=== PATIENT | male | born 1950 | race Caucasian/White ===

== ENCOUNTER 2018-04-07 08:45 | Inpatient (IN) | payer MEDICARE, OTHER ==
[2018-04-07] VITALS (11 sets, daily range): BP systolic 95–116; BP diastolic 50–71
[~2018-04-07] VITALS: Ht 180.3 cm; Wt 147.6 kg
[~2018-04-07 08:45] MED LIST: ASPIRIN EC81 MG PO; FUROSEMIDE40 MG PO; INVANZ1 GM IJ; KLOR-CON 1010 ME1 PO; LISINOPRIL20 MG PO; METOLAZONE2.5 MG PO; SILVADENE1 % TOP; SIMVASTATIN20 MG PO
[2018-04-07 09:25] LABS: CREATININE 1.6 mg/dL (0.7-1.3); POTASSIUM 5.1 mmol/l (3.5-5.1)
[2018-04-07 09:26] LABS: HEMATOCRIT 47.5 % (39.0-50.0); HEMOGLOBIN 14.5 g/dl (14.0-18.0); IMMATURE GRANULOCYTES 0.5 % (0.0-5.0); MEAN CELL VOLUME 89.3 fL CALC (80.0-100.0); MEAN CORPUSCULAR HGB 27.3 pG CALC (26.0-32.0); MEAN CORPUSCULAR HGB CONC 30.5 g/L CALC (32.0-36.0); NEUT# 10.97 thou/uL (1.82-7.42); RED BLOOD COUNT 5.32 mill/uL (4.70-6.10); RED CELL DISTRI WIDTH 15.9 % (11.5-15.5)
[2018-04-07] MEDS ORDERED: HYDROCHLOROT25 MG PO (11:42)
[2018-04-07] MEDS ORDERED: CLONIDINE0.1 MG PO (11:42)
[2018-04-07] MEDS ORDERED: MINOCYCLINE100 MG PO (11:43)
[2018-04-07] MEDS ORDERED: METO50TA52 PO (11:44)
[2018-04-07 19:22] LABS: URINE BLOOD DIPSTICK TRACE-INTACT (NEGATIVE); URINE GLUCOSE - DIPSTICK NEGATIVE (NEGATIVE); URINE KETONE NEGATIVE (NEGATIVE); URINE LEUK ESTERASE NEGATIVE (NEGATIVE); URINE NITRITE - DIPSTICK NEGATIVE (Negative); URINE PH 5.5 (4.5-8.0); URINE PROTEIN - DIPSTICK 100 mg/dL (NEG-TRACE); URINE SPECIFIC GRAVITY >=1.030
[2018-04-07 19:31] LABS: URINE BILIRUBIN - DIPSTICK NEGATIVE (NEGATIVE); URINE CLARITY HAZY; URINE COLOR DK. YELLOW
[2018-04-07 19:32] LABS: URINE FINE GRAN CAST RARE lpf; URINE RBC 0-2 RBC/hpf (0-5); URINE WBC 0-2 WBC/hpf (0-5)
[2018-04-08] VITALS (19 sets, daily range): BP systolic 92–155; BP diastolic 52–91
[2018-04-08 05:41] LABS: HEMATOCRIT 44.4 % (39.0-50.0); HEMOGLOBIN 13.4 g/dl (14.0-18.0); IMMATURE GRANULOCYTES 0.4 % (0.0-5.0); MEAN CELL VOLUME 90.2 fL CALC (80.0-100.0); MEAN CORPUSCULAR HGB 27.2 pG CALC (26.0-32.0); MEAN CORPUSCULAR HGB CONC 30.2 g/L CALC (32.0-36.0); NEUT# 9.03 thou/uL (1.82-7.42); RED BLOOD COUNT 4.92 mill/uL (4.70-6.10); RED CELL DISTRI WIDTH 15.7 % (11.5-15.5)
[2018-04-08 05:58] LABS: ANION GAP 15 (6-22 (CALC)); BUN 30 mg/dL (8-23); BUN/CREATININE RATIO 27 (12-20 (CALC)); CARBON DIOXIDE 29 mmol/l (22-30); CHLORIDE 104 mmol/l (95-108); CREATININE 1.1 mg/dL (0.7-1.3); GFR > 60 ML/MIN (>=60 (CALC)); GFR FOR AFR.AMER. > 60 ML/MIN (>=60 (CALC)); SODIUM 143 mmol/l (137-146)
[2018-04-08 06:04] LABS: POTASSIUM 5.4 mmol/l (3.5-5.1)
[2018-04-09] VITALS (15 sets, daily range): BP systolic 105–142; BP diastolic 59–86
[2018-04-09 05:23] LABS: HEMATOCRIT 43.5 % (39.0-50.0); HEMOGLOBIN 13.2 g/dl (14.0-18.0); IMMATURE GRANULOCYTES 0.8 % (0.0-5.0); MEAN CELL VOLUME 90.2 fL CALC (80.0-100.0); MEAN CORPUSCULAR HGB 27.4 pG CALC (26.0-32.0); MEAN CORPUSCULAR HGB CONC 30.3 g/L CALC (32.0-36.0); NEUT# 11.19 thou/uL (1.82-7.42); RED BLOOD COUNT 4.82 mill/uL (4.70-6.10); RED CELL DISTRI WIDTH 15.3 % (11.5-15.5)
[2018-04-09 05:47] LABS: BUN 23 mg/dL (8-23); BUN/CREATININE RATIO 23 (12-20 (CALC)); CARBON DIOXIDE 31 mmol/l (22-30); CHLORIDE 106 mmol/l (95-108); GFR > 60 ML/MIN (>=60 (CALC)); GFR FOR AFR.AMER. > 60 ML/MIN (>=60 (CALC)); SODIUM 143 mmol/l (137-146)
[2018-04-09 05:50] LABS: ANION GAP 12 (6-22 (CALC)); POTASSIUM 5.5 mmol/l (3.5-5.1)
[2018-04-10] VITALS (13 sets, daily range): BP systolic 113–163; BP diastolic 75–102
[2018-04-10 05:20] LABS: HEMATOCRIT 44.2 % (39.0-50.0); HEMOGLOBIN 13.3 g/dl (14.0-18.0); MEAN CELL VOLUME 90.4 fL CALC (80.0-100.0); MEAN CORPUSCULAR HGB 27.2 pG CALC (26.0-32.0); MEAN CORPUSCULAR HGB CONC 30.1 g/L CALC (32.0-36.0); RED BLOOD COUNT 4.89 mill/uL (4.70-6.10); RED CELL DISTRI WIDTH 15.2 % (11.5-15.5)
[2018-04-10 05:45] LABS: ANION GAP 11 (6-22 (CALC)); BUN 24 mg/dL (8-23); BUN/CREATININE RATIO 23 (12-20 (CALC)); CARBON DIOXIDE 36 mmol/l (22-30); CHLORIDE 103 mmol/l (95-108); GFR > 60 ML/MIN (>=60 (CALC)); GFR FOR AFR.AMER. > 60 ML/MIN (>=60 (CALC)); POTASSIUM 4.8 mmol/l (3.5-5.1); SODIUM 145 mmol/l (137-146)
[2018-04-10] MEDS ORDERED: PREDNISONE10 MG PO (11:14)
[2018-04-10] MEDS ORDERED: DOXYCYCL HYC100 MG PO (11:14)
[2018-04-10] MEDS ORDERED: LEVAQUIN750 MG PO (11:14)
[2018-04-10] MEDS ORDERED: FLORASTOR250 M1 PO (11:14)
[2018-04-10] MEDS ORDERED: OXY1 (11:15)
[2018-04-11] VITALS (7 sets, daily range): BP systolic 140–160; BP diastolic 71–95
== END 2018-04-11 11:00 | disposition home or self-care (01) | DRG 871 ==
LOC: ED 08:45 → ED-I 11:32 → ED 12:14 → ICU 12:15
PROVIDERS: Family Medicine; Nurse Practitioner Family; ADMIT Internal Medicine; ATTEND Internal Medicine
PROC: 5A09457 Assistance with Respiratory Ventilation, 24-96 Consecutive Hours, Continuous Positive Airway Pressure (ICD-10-PCS; principal; 2018-04-07)
DX: A41.9 Sepsis, unspecified organism (principal); J96.02 Acute respiratory failure with hypercapnia; J96.01 Acute respiratory failure with hypoxia; R65.21 Severe sepsis with septic shock; L03.115 Cellulitis of right lower limb; Z68.42 Body mass index [BMI] 45.0-49.9, adult; N17.9 Acute kidney failure, unspecified; E66.2 Morbid (severe) obesity with alveolar hypoventilation; I11.0 Hypertensive heart disease with heart failure; I50.9 Heart failure, unspecified; I89.0 Lymphedema, not elsewhere classified; I25.10 Atherosclerotic heart disease of native coronary artery without angina pectoris; I25.2 Old myocardial infarction; E78.5 Hyperlipidemia, unspecified; E86.0 Dehydration; I27.20 Pulmonary hypertension, unspecified; Z87.891 Personal history of nicotine dependence
CPT/HCPCS: J3370; Q9967

== ENCOUNTER 2018-05-12 13:45 | Emergency (ER) | payer MEDICARE, OTHER ==
[~2018-05-12] VITALS: Ht 180.3 cm; Wt 90.9 kg
[~2018-05-12 13:45] MED LIST changes: +CLONIDINE0.1 MG PO; +DOXYCYCL HYC100 MG PO; +FLORASTOR250 M1 PO; +HYDROCHLOROT25 MG PO; +LEVAQUIN750 MG PO; +METO50TA52 PO; +MINOCYCLINE100 MG PO; +OXY1; +PREDNISONE10 MG PO
[2018-05-12 14:24] LABS: HEMATOCRIT 41.3 % (39.0-50.0); HEMOGLOBIN 12.3 g/dl (14.0-18.0); MEAN CELL VOLUME 91.6 fL CALC (80.0-100.0); MEAN CORPUSCULAR HGB 27.3 pG CALC (26.0-32.0); MEAN CORPUSCULAR HGB CONC 29.8 g/L CALC (32.0-36.0); NEUT# 8.21 thou/uL (1.82-7.42); RED BLOOD COUNT 4.51 mill/uL (4.70-6.10); RED CELL DISTRI WIDTH 17.2 % (11.5-15.5)
[2018-05-12 14:28] LABS: BUN 23 mg/dL (8-23); BUN/CREATININE RATIO 22 (12-20 (CALC)); CHLORIDE 95 mmol/l (95-108); GFR > 60 ML/MIN (>=60 (CALC)); GFR FOR AFR.AMER. > 60 ML/MIN (>=60 (CALC)); POTASSIUM 4.4 mmol/l (3.5-5.1); SODIUM 143 mmol/l (137-146)
[2018-05-12 14:36] LABS: ANION GAP 14 (6-22 (CALC)); CARBON DIOXIDE 38 mmol/l (22-30)
[2018-05-12] MEDS ORDERED: CEPHALEXIN500 M1 PO (15:16)
[2018-05-12] MEDS ORDERED: BACTRIM DS1 TAB PO (15:16)
[2018-05-12 15:24] LABS: URINE BILIRUBIN - DIPSTICK NEGATIVE (NEGATIVE); URINE BLOOD DIPSTICK NEGATIVE (NEGATIVE); URINE COLOR YELLOW; URINE GLUCOSE - DIPSTICK NEGATIVE (NEGATIVE); URINE KETONE NEGATIVE (NEGATIVE); URINE LEUK ESTERASE NEGATIVE (NEGATIVE); URINE NITRITE - DIPSTICK NEGATIVE (Negative); URINE PROTEIN - DIPSTICK 30 mg/dL (NEG-TRACE); URINE SPECIFIC GRAVITY 1.025
[2018-05-12 15:29] LABS: URINE CLARITY CLEAR; URINE RBC 0-2 RBC/hpf (0-5); URINE WBC 0-2 WBC/hpf (0-5)
[2018-05-12 15:30] VITALS: BP 127/54
== END 2018-05-12 15:30 | disposition home or self-care (01) ==
LOC: ED 13:45
PROVIDERS: Family Medicine
DX: L03.315 Cellulitis of perineum (principal); I10 Essential (primary) hypertension; I89.0 Lymphedema, not elsewhere classified; Z99.81 Dependence on supplemental oxygen

== ENCOUNTER → 2018-10-28 | Outpatient (REF) | payer MEDICARE, OTHER ==
[~2018-10-28] MED LIST changes: +BACTRIM DS1 TAB PO; +CEPHALEXIN500 M1 PO
[2018-10-28 08:34] LABS: ANION GAP 13 (6-22 (CALC)); BUN 22 mg/dL (8-23); BUN/CREATININE RATIO 22 (12-20 (CALC)); CARBON DIOXIDE 34 mmol/l (22-30); CHLORIDE 98 mmol/l (95-108); GFR > 60 ML/MIN (>=60 (CALC)); GFR FOR AFR.AMER. > 60 ML/MIN (>=60 (CALC)); POTASSIUM 4.6 mmol/l (3.5-5.1); SODIUM 141 mmol/l (137-146)
== END | disposition home or self-care (01) ==
LOC: LAB 07:37
PROVIDERS: ATTEND Internal Medicine
DX: I10 Essential (primary) hypertension (principal)

== ENCOUNTER 2019-06-18 14:06 | Inpatient (IN) | payer MEDICARE, OTHER ==
[~2019-06-18] VITALS: Ht 180.3 cm; Wt 129.7 kg
[2019-06-18] VITALS (12 sets, daily range): BP systolic 74–102; BP diastolic 44–58
--- NOTE | 2019-06-18 14:08 | NUR ---
PT WHEELED TO ROOM # 9 FOR BEDSIDE TRIAGE
--- NOTE | 2019-06-18 14:10 | NUR ---
PT STATES HAS LYMPODEMA AND LEGS ARE ALWAYS BIG, BUT HE HAD INCREASED SOB TODAY, WAS OVER [facility] BECAUSE HE HAS PINA LEGS WEEPING CHRONIC THAT THEY ARE SEEING HIM FOR. THEY SENT HIM TO ER FOR EVALUATION. PT IS ON 4 LITRES OF OXYGEN AT HOME AT ALL TIMES. DOES NOT TAKE NEB TX OF INHALERS. PT STATES HAS BEEN WORKING A LOT OF NIGHT SHIFTS WITH LEGS HANGING DOWN IN CHAIR THE PAST COUPLE OF WEEKS, AND HIS LEGS TEND TO SWELL MORE AND INCREASED SOB WHEN THAT HAPPENS. STATES HIS BLOOD PRESSURE IS USUALLY LOW,
[2019-06-18] MEDS ORDERED: FUROSEMIDE20 MG PO (14:25)
[2019-06-18] MEDS ORDERED: CEFEPIME1 G2 IV (14:25)
[2019-06-18] MEDS ORDERED: SILDENAFIL20 MG PO (14:26)
--- NOTE | 2019-06-18 14:40 | NUR ---
UNSUCCESSFUL ATTEMPTS BY 3 NURSES, HAVE IV ACCESS AT THIS TIME IN RIGHT UPPER CHEST WALL, FLUSHES WELL.
--- NOTE | 2019-06-18 14:41 | NUR ---
RESPIRATORY HERE FOR ABG, TRIED UNSUCCESSFUL, WILL ATTEMPT AGAIN, PORTABLE CHEST XRAY DONE. AT BEDSIDE. ARGUING AMONG AND PT ON EVERY QUESTION THAT IS ASKED. PT STATES HE DOES NOT APPLY HIS COMPRESSION MACHINE FOR HIS LEGS LIKE HE IS SUPPOSE TO.
--- NOTE | 2019-06-18 14:44 | NUR ---
IV ACCESS ON RIGHT UPPER CHEST FLUSHES WELL. TAPED AND SECURED.
--- NOTE | 2019-06-18 14:55 | NUR ---
NOTIFIED OF SEPSIS SCREENING. WILL BE DOING ANTIBIOTICS, BUT BECAUSE OF THE EDEMA DR. HERNANDEZ DOES NOT WANT TO GIVE FLUIDS. AWARE.
[2019-06-18 15:06] LABS: IMMATURE GRANULOCYTES 3.4 % (0.0-5.0); MEAN CELL VOLUME 84.1 fL CALC (80.0-100.0); MEAN CORPUSCULAR HGB 26.4 pG CALC (26.0-32.0); MEAN CORPUSCULAR HGB CONC 31.4 g/L CALC (32.0-36.0); NEUT# 24.02 thou/uL (1.82-7.42); RED BLOOD COUNT 4.16 mill/uL (4.70-6.10); RED CELL DISTRI WIDTH 16.1 % (11.5-15.5)
[2019-06-18 15:20] LABS: INTERNATIONAL NORMALIZED RATIO 1.1 RATIO (0.7-1.3); PROTHROMBIN TIME 11.4 SECONDS (9.0-12.5)
[2019-06-18 15:24] LABS: ALBUMIN 3.3 g/dL (3.2-5.0); BILIRUBIN, TOTAL 1.2 mg/dL (0.0-1.4); TOTAL PROTEIN 7.9 g/dL (6.3-8.2)
[2019-06-18 15:30] LABS: CREATININE 3.7 mg/dL (0.7-1.3); POTASSIUM 5.4 mmol/l (3.5-5.1)
--- NOTE | 2019-06-18 15:35 | NUR ---
PTS SATS REMAIN IN THE LOW 90'S WITH O2 &4
--- NOTE | 2019-06-18 15:36 | NUR ---
BLOODD PRESSURE REMAINS LOW IN THE 70'S, PT AND HIS STATES THIS IS A CHRONIC PROBLEM, FOR LAST 5 YEARS. PT STATES FEELS BETTER AT THIS TIME.
--- NOTE | 2019-06-18 16:34 | NUR ---
VANCOMYACIN INFUSING AT THIS TIME THRU IV IN LEFT HAND, NO REDNESS NOTED. PINA LEGS ARE WRAPPED IN EDITH PER WOUND CARE BECAUSE OF LEGS WEEPING. REDNESS NOTED TO UPPER THIGHS, PT STATES THIS IS NORMAL AND THAT HE HAS NOT BEEN USING HIS MACHINE FOR HIS LYMPHADEMA HE SHOULD BE.
--- NOTE | 2019-06-18 17:12 | NUR ---
WAITING FOR DR. NICHOLAS TO CALL BACK ABOUT BLOOD PRESSURE BEFORE TAKING PT TO FLOOR, CALL IN FOR HIM TO CALL ER. PT STATES HE HAS CHRONIC BLOOD PRESSURE AND HIS SATS USALLY RUN IN BETWEEN 79-83 AT HOME WHEN ON 4 L PER NC
--- NOTE | 2019-06-18 17:20 | NUR ---
[facility] CALLED TO RECOMMEND CEFEPINE BE GIVEN 500/2 GRAMS EVERY 24 HOURS INSTEAD OF ORDER OF CEFAPINE 1 GRAM BID. WILL SPEAK WIWTH DR. DIMAS WHEN HE CALLS BACK
--- NOTE | 2019-06-18 17:33 | NUR ---
DR. NICHOLAS HERE SPEAKING WITH PT. WILL CHANGE CEFIPIME ORDER PER [facility] SUGGESTION AND HAVE A PRN PRESSOR PLACED ON ORDERS.
--- NOTE | 2019-06-18 17:50 | NUR ---
PT REPORT GIVEN TO ICU AND PT TAKEN PER STRETCHER WITH MONITER.
--- NOTE | 2019-06-18 18:02 | NUR ---
PT ARRIVED FROM ED TO ICU BED 7 VIA STRETCHER. PT SCOOTED HIMSELF FROM STRETCHER TO BED. PT DENIES CHEST PAIN OR DISTRESS, SR ON TELEMETRY, HR 99. RESP-26 WITH PURSED LIP BREATHING. LS WHEEZING THROUGHOUT.SAO2@85% ON 4LPM VIA N/C.NON-PRODUCTIVE COUGH. ABDOMEN SOFT, DISTENDED, NON-TENDER WITH BSX4 ACTIVE, LBM 10-24-19. PT WITH +4 PITTING EDEMA TO BLE, WRAPS INTACT FOR WEEPING. PT REPORTS DRESSING AND WRAP CHANGED TODAY AT [facility] JUST PRIOR TO ADMISSION, CDI. PT CONTINUES WITH 20G RU CHEST/SL & 20G RAC/SL, BOTH FLUSH WITHOUT DIFFICULTY. 20G TO R HAND INFUSING NS@125ML/HR, NO S/S OF INFILTRATION. PT STATES 5/10 PAIN TO BLE THAT IS CHRONIC, STATES "IF IT GETS REALLY BAD I TAKE IBPROFEN AT HOME." PT ALSO STATED WAS HAVE H/H IN M,W,F FOR WOUNDCARE UNTIL LAST WEEK. PT ORIENTED TO UNIT, ROOM AND CALL LIGHT. CALL LIGHT IN REACH. WILL MONITOR.
--- NOTE | 2019-06-18 18:34 | NUR ---
DR. MOORE NOTIFIED ABOUT PT B/P PARAMETERS TO INITIATE LEVOPHED AND PT CURRENT O2SAT. NEW ORDERS RECIEVED.
--- NOTE | 2019-06-18 19:00 | NUR ---
REPORT RECEIVED FROM ELISEO AVERY. PT UP TO BSC FOR BOWEL MOVEMENT AT THIS TIME.
--- NOTE | 2019-06-18 19:40 | NUR ---
PT ASSISTED BACK INTO BED SEMI FOWLERS; UNABLE TO HAVE BM AT THIS TIME. PT ALERT AND ORIENTED. C/O CHRONIC LEG PAIN; DECLINED MEDICATION. RESPIRATIONS SLIGHTLY LABORED FROM EXERTION ON OXYGEN VIA NC. ASSESSMENT COMPLETED AT THIS TIME. BP 92/52 MAP OF 66. PLAN OF CARE REVIEWED. PT ENCOURAGED TO VERBALIZE CONCERNS. STATES UNDERSTANDING. SAFETY MEASURES IN PLACE. CALL LIGHT WITHIN REACH.
--- NOTE | 2019-06-18 20:40 | NUR ---
2L NORMAL SALINE BOLUS HELD FOR IMPROVED BLOOD PRESSURE PER DR. KEMP. BP CURRENTLY 102/53; WILL CONTINUE TO MONITOR. PT VOIDED 150ML OF TEA COLORED URINE; SPECIMENT SENT TO LAB.
[2019-06-18 20:41] LABS: URINE BLOOD DIPSTICK MODERATE (NEGATIVE); URINE COLOR BROWN; URINE GLUCOSE - DIPSTICK NEGATIVE (NEGATIVE); URINE KETONE TRACE mg/dL (NEGATIVE); URINE LEUK ESTERASE NEGATIVE (NEGATIVE); URINE PROTEIN - DIPSTICK 30 mg/dL (NEG-TRACE); URINE SPECIFIC GRAVITY >=1.030; URINE UROBILINOGEN - DIPSTICK 0.2 E.U./dL (0.2)
[2019-06-18 20:45] LABS: URINE BILIRUBIN - DIPSTICK NEGATIVE (NEGATIVE); URINE NITRITE - DIPSTICK POSITIVE (Negative)
[2019-06-18 20:48] LABS: URINE BACTERIA FEW hpf
[2019-06-18 20:49] LABS: URINE AMORPH SEDIMENT MANY hpf (NONE-FER)
[2019-06-19] VITALS (34 sets, daily range): BP systolic 53–135; BP diastolic 27–77
--- NOTE | 2019-06-19 00:16 | NUR ---
PT ASLEEP WITH NO SIGNS OF DISTRESS. RESPIRATIONS EVEN AND UNLABORED ON OXYGEN; RESTING WITH HOB ELEVATED 45 DEGREES; OXYGEN SATURATIONS FROM 80-85% ON 4L NC. SR/ST ON TELEMETRY. BP 82/46 WITH MAP OF 60. IV FLUIDS INFUSING WITHOUT DIFFICULTY. BLE ELEVATED. SAFETY MEASURES IN PLACE. CALL LIGHT WITHIN REACH.
--- NOTE | 2019-06-19 02:01 | NUR ---
PT SITTING UP DRINKING COFFEE PER REQUEST. VOIDED 175ML OF BROWN/TEA COLORED URINE. REMAINS HYPOTENSIVE, BUT STABLE AND ASYMPTOMATIC. NO OTHER REQUESTS OR CONCERNS AT THIS TIME.
--- NOTE | 2019-06-19 04:43 | NUR ---
LEVOPHED DRIP INITIATED AT 8MCG/MIN FOR BP OF 86/27 AND SUSTAINED MAP OF 47.
--- NOTE | 2019-06-19 04:49 | NUR ---
LAB AT BEDSIDE.
--- NOTE | 2019-06-19 05:28 | NUR ---
PT UP TO BSC FOR AMY CARE AND LINEN CHANGE. PT WASHED SELF UP AND POSITIONED BACK INTO BED. DECLINES ORAL CARE AT THIS TIME. LEVOPHED NOW INFUSING AT 11 MCG/MIN. BP 105/56 MAP 74.
[2019-06-19 05:41] LABS: HEMATOCRIT 36.3 % (39.0-50.0); HEMOGLOBIN 11.1 g/dl (14.0-18.0); MEAN CELL VOLUME 85.4 fL CALC (80.0-100.0); MEAN CORPUSCULAR HGB 26.1 pG CALC (26.0-32.0); MEAN CORPUSCULAR HGB CONC 30.6 g/L CALC (32.0-36.0); RED BLOOD COUNT 4.25 mill/uL (4.70-6.10); RED CELL DISTRI WIDTH 16.2 % (11.5-15.5)
[2019-06-19 05:47] LABS: ALBUMIN 2.9 g/dL (3.2-5.0); BILIRUBIN, TOTAL 0.9 mg/dL (0.0-1.4); TOTAL PROTEIN 7.2 g/dL (6.3-8.2)
[2019-06-19 05:55] LABS: POTASSIUM 5.6 mmol/l (3.5-5.1)
--- NOTE | 2019-06-19 06:45 | NUR ---
RECIEVED REPORT FROM ELISEO SWENSON. ASSUMED PT CARE.
--- NOTE | 2019-06-19 07:57 | NUR ---
Vancomycin consult Age: 69 yo Serum creatinine: 3 mg/dL Height: 71.0 Inches Weight (kg): 123.9 IBW (kg): 75.30 Dosing wt(kg): 123.9 BMI > 25 using IBW wt for crcl Estimated Creatinine clearance (ml/min): 24.8 Vd (liters): 86.7 (factor used: 0.7 L/kg) Eddie (hr-1): 0.025 Half life (hrs): 27.73 Vancomycin 1250 mg q 24 hrs, starting at 1300 today, with an expected Cpeak of 31 mcg/ml and an expected Ctrough of 18 mcg/ml. Vancomycin 1gm already given 06/18/19 at 1611. Trough on 06/22/19 at 1230.
--- NOTE | 2019-06-19 08:00 | NUR ---
PT RESTING IN BED, A&OX4, ABLE TO MAKE NEEDS KNOWN. SR ON TELEMETRY, HR 96 PT DENIES CP OR DISTRESS. PURSE LIP BREATHING, SOB WITH EXERTION. RT NOTIFIED. SA02@88%ON 4LPM VIA N/C. ABDOMEN SOFT, DISTENDED, NON TENDER, BSX4 ACTIVE. BLE +4 LYMPHODEMA WITH BLE WRAPS CDI, WITH ODOR NOTED. CALL LIGHT IN REACH. WILL MONITOR.
--- NOTE | 2019-06-19 08:15 | NUR ---
RT AT BEDSIDE FOR ASSESSMENT.
--- NOTE | 2019-06-19 08:20 | NUR ---
PT ASSISTED TO BSC, THEN BACK TO BED .
--- NOTE | 2019-06-19 08:45 | NUR ---
DR. MOORE & DIEGO TOSCANO AT BEDSIDE FOR ASSESSMENT AND TO DISCUSS PLAN OF CARE. NEW ORDERS RECIEVED.
--- NOTE | 2019-06-19 10:00 | NUR ---
PT ARRIVED AT BEDSIDE.
--- NOTE | 2019-06-19 11:00 | NUR ---
IV site LH discontinued, cath intact. No edema , no redness, voices no discomfort.
--- NOTE | 2019-06-19 11:30 | NUR ---
PT REPOSITIONED SELF, LUNCH TRAY SET UP. GUEST TRAY ORDERED FOR .
--- NOTE | 2019-06-19 12:00 | NUR ---
ASKED PT ABOUT INSERTION OF BARAHONA FOR STRICT I&O'S , PT REFUSED. "STATED i WOULD RATHER YOU HAVE TO CUT ME OPEN, THAN GET A BARAHONA."
--- NOTE | 2019-06-19 13:00 | NUR ---
ASKED PT AGAIN TO CONSIDER A BARAHONA, PT REFUSED.
[2019-06-19 13:07] LABS: CREATININE 2.3 mg/dL (0.7-1.3); MAGNESIUM 2.8 mg/dL (1.6-2.3); POTASSIUM 5.1 mmol/l (3.5-5.1)
--- NOTE | 2019-06-19 14:30 | NUR ---
DR. MOORE AT BEDSIDE TO DISCUSS PLACEMENT OF BARAHONA, PT REFUSED.
--- NOTE | 2019-06-19 16:00 | NUR ---
PT RESTING IN BED, OFFERS NO COMPLAINTS AT THIS TIME. RESPIRATIONS EVEN/UNLABORED. SA02@92% ON 5LPM . CALL LIGHT IN REACH. WILL MONITOR.
--- NOTE | 2019-06-19 17:00 | NUR ---
ARRIVED AT BEDSIDE.
--- NOTE | 2019-06-19 17:39 | NUR ---
FAMILY ARRIVED AT BEDSIDE.
--- NOTE | 2019-06-19 19:20 | NUR ---
sitting in high fowlers position. o2 cont. awakens easily. [place]. denies distress. awake overnight monitor shows sinus rhythm pacs pvcs. #20 rac ns infusing @ 125cchr, levo infusing @ 10mcg/min. po fluids taken fair. voids per urinal. ble dressing are wet. foul odor noted. fall precautions cont.
--- NOTE | 2019-06-19 22:00 | NUR ---
sleeping in high fowlers position. no distress. monitoring coordinator shows sinus rhythm pacs pvcs hr 98.
[2019-06-20] VITALS (33 sets, daily range): BP systolic 75–139; BP diastolic 26–82
--- NOTE | 2019-06-20 00:20 | NUR ---
up to bsc per request. asked pt if he used home cpap. pt denied.
--- NOTE | 2019-06-20 02:00 | NUR ---
eyes closed. no acute distress. o2 cont.
--- NOTE | 2019-06-20 04:00 | NUR ---
voided per urinal. no c/o voiced. surveillance monitor shows sinus rhythm pacs pvcs hr 96.
--- NOTE | 2019-06-20 05:20 | NUR ---
lab here. blood drawn.
[2019-06-20 05:54] LABS: HEMATOCRIT 39.8 % (39.0-50.0); HEMOGLOBIN 11.9 g/dl (14.0-18.0); MEAN CELL VOLUME 87.9 fL CALC (80.0-100.0); MEAN CORPUSCULAR HGB 26.3 pG CALC (26.0-32.0); MEAN CORPUSCULAR HGB CONC 29.9 g/L CALC (32.0-36.0); RED BLOOD COUNT 4.53 mill/uL (4.70-6.10); RED CELL DISTRI WIDTH 16.4 % (11.5-15.5)
--- NOTE | 2019-06-20 06:00 | NUR ---
eyes closed. remains in high fowlers position. o2 cont.
[2019-06-20 06:12] LABS: CREATININE 1.5 mg/dL (0.7-1.3); POTASSIUM 5.1 mmol/l (3.5-5.1)
--- NOTE | 2019-06-20 07:10 | NUR ---
REPORT RECEIVED FROM JERI DUMONT. PT SITTING UP IN BED; ALERT AND ORIENTED. DENIES PAIN. RESPIRATIONS EVEN AND UNLABORED ON OXYGEN. LEVOPHED INFUSING AT 3MCG/MIN. SAFETY MEASURES IN PLACE. CALL LIGHT WITHIN REACH.
--- NOTE | 2019-06-20 08:10 | NUR ---
Vancomycin consult Age: 69 yo Serum creatinine: 1.5 mg/dL (decreased from 3 to 1.5) Height: 71.0 Inches Weight (kg): 124 IBW (kg): 75.30 Dosing wt(kg): 124 Estimated Creatinine clearance (ml/min): 49.5 Crcl improved from 25 to 49 Vd (liters): 86.8 (factor used: 0.7 L/kg) Eddie (hr-1): 0.045 Half life (hrs): 15.40 Vancomycin 1000 mg q 12 hrs at 1000 & 2200 with an expected Cpeak of 26 mcg/ml and an expected Ctrough of 16 mcg/ml. Next trough on 06/21/19 at 2130
--- NOTE | 2019-06-20 08:10 | NUR ---
PT INCONTINENT OF URINE; UP TO BS FOR FULL ASSISTED BATH BY STUDENT NURSE AND LINEN CHANGE. ASSESSMENT COMPLETED AT THIS TIME. PT NOW SITTING UP IN RECLINER EATING BREAKFAST. C/O MILD PAIN TO BLE; MIRACLE WRAPS CDI. LUNGS WITH EXPIRATORY WHEEZING. PLAN OF CARE REVIEWED. PT ENCOUARGED TO VERBALIZE CONCERNS. STATES UNDERSTANDING. SAFETY MEASURES IN PLACE. CALL LIGHT WITHIN REACH.
--- NOTE | 2019-06-20 09:19 | NUR ---
DIEGO CADET AT BEDSIDE. LEVOPHED DRIP DISCONTINUED.
--- NOTE | 2019-06-20 09:56 | NUR ---
PT BACK IN BED RESTING SEMI FOWLERS. OXYGEN SATURATION REMAINS BETWEEN 79-85% ON OXYGEN 4L VIA NC. CURRENTLY DENIES PAIN. NO OTHER REQEUSTS OR CONCERNS AT THIS TIME.
--- NOTE | 2019-06-20 10:29 | NUR ---
AT BEDSIDE. PT SR/ST ON TELEMETRY.
--- NOTE | 2019-06-20 10:42 | NUR ---
PT C/O SOB WITH NC; OXYGEN SATURATION 85%. CHANGED TO 50% ON THE VENTI MASK; OXYGEN SATURATION UP TO 89%.
--- NOTE | 2019-06-20 12:55 | NUR ---
CEFEPIME INFUSING AT THIS TIME. VSS. PT VOIDING IN URINAL CLEAR YELLOW.
--- NOTE | 2019-06-20 13:17 | NUR ---
DR MOORE AT BEDSIDE.
--- NOTE | 2019-06-20 13:36 | NUR ---
RT AT [facility] FOR ABG. RADIOLOGY AT BEDSIDE FOR CXR. IV FLUIDS DECREASED TO KVO AND LASIX GIVEN IV. FLUIDS NOW INFUSING THROUGH IV TO RIGHT UPPER CHEST. RAC SALINE LOCKED AND DRESSING REPLACED DUE TO LEAKING.
--- NOTE | 2019-06-20 13:50 | NUR ---
PT CONTINUES TO REFUSE BARAHONA CATHETER. AGREED TO CONDOM CATHETER; ATTEMPTED WITHOUT SUCCESS. URINAL AT BEDSIDE.
--- NOTE | 2019-06-20 13:51 | NUR ---
RT AT BEDSIDE FOR BREATHING TREATMENT.
--- NOTE | 2019-06-20 14:01 | NUR ---
ABG RESULTS RECEIVED. PT NOW ON 10L HIGH FLOW CANNULA; OXYGEN SATURATION 92%. VSS. WILL CONTINUE TO MONITOR.
--- NOTE | 2019-06-20 16:40 | NUR ---
BLE WRAPS REMOVED; LEGS WASHED AND KERLEX AND MIRACLE WRAP REAPPLIED. MODERATE SEROUS AND PURULENT DRAINAGE NOTED TO BLE. SKIN IS REDENNED, BOGGY, WITH SOME OPEN AREAS. PHOTOS TAKEN AND PLACED IN CHART.
--- NOTE | 2019-06-20 20:10 | NUR ---
PT AWAKE RESTING IN BED IN HIGH FOWLERS POSITION WATCHING T.V. VSS. RESP EVEN AND LABORED AT TIMES. HIGH MELINDA N/C ON AT 10L. O2 SAT 86-90%. NO DISTRESS NOTED. PT IS ALERT AND ORIENTED X3. LUNGS REVEAL DIMINISHED BREATH SOUNDS IN ALL LOBES. ABD SOFT WITH BOWEL SOUNDS PRESENT. PT STATES HE DID HAVE A BM TODAY. PT IS URINATING IN URINAL CLEAR YELLOW URINE. HEPLOCK PATENT IN RT A.C AND FLUSHED WITHOUT ANY DIFFICULTY. IV SITE PATENT IN RT UPPER CHEST WITH DRESSING CLEAN AND DRY . PT DOES HAVE CHRONIC BILAT LYMPH EDEMA. +4 BILAT LOWER EXT EDEMA NOTED. WEAK PEDAL PULSES PALPATED BILAT. DRESSING CHANGES DONE TODAY ON DAYSHIFT. BILAT LOWER EXT ARE CLEAN AND DRY. PT ASSISTED WITH TURNING AND REPOSITIONING FOR COMFORT. TELE ST LOW 100'S. B/P IS STABLE. PT DENIES ANY DIFFICULTY BREATHING. FREQUENT ROUNDS MADE. CALL FERNÁNDEZ WITHIN REACH.
--- NOTE | 2019-06-20 21:30 | NUR ---
PT AWAKE RESTING IN BED WATCHING T.V. B/P 123/65, HR 90'S. IV SITE PATENT IN RT A.C WITH NSS AT 10CC/HR AND VANCO INFUSING. OFFERS NO COMPLAINTS. O2 SAT CURRENTLY 91%. FREQUENT ROUNDS MADE. CALL FERNÁNDEZ WITHIN REACH.
--- NOTE | 2019-06-20 21:32 | NUR ---
PT GIVEN INSENTIVE SPIROMETRY AND TEACHING DONE ON IMPORTANCE OF USING 10X/HR WHILE AWAKE. RETURN DEMONSTRATION DONE.
--- NOTE | 2019-06-20 22:10 | NUR ---
eyes closed. no distress. remains in high fowlers position. o2 cont. customer quality specialist shows sinus tach pacs pvcs hr 100. #20 rac ns infusing @ 10cchr. voids per urinal. legs remain wrapped & are foul smelling. fall precautions cont.
[2019-06-21] VITALS (13 sets, daily range): BP systolic 99–168; BP diastolic 53–100
--- NOTE | 2019-06-21 00:01 | NUR ---
eyes closed. no resp diff. o2 cont. conveyor monitor shows sinus tach pacs pvcs hr 100.
--- NOTE | 2019-06-21 02:00 | NUR ---
eyes closed. remains in high fowlers position. o2 cont. bottle gauger shows sinus rhythm pacs pvcs.
--- NOTE | 2019-06-21 04:30 | NUR ---
lab here. blood drawn.
[2019-06-21 04:40] LABS: HEMATOCRIT 38.5 % (39.0-50.0); HEMOGLOBIN 11.4 g/dl (14.0-18.0); MEAN CELL VOLUME 88.7 fL CALC (80.0-100.0); MEAN CORPUSCULAR HGB 26.3 pG CALC (26.0-32.0); MEAN CORPUSCULAR HGB CONC 29.6 g/L CALC (32.0-36.0); RED BLOOD COUNT 4.34 mill/uL (4.70-6.10); RED CELL DISTRI WIDTH 16.3 % (11.5-15.5)
[2019-06-21 05:01] LABS: ANION GAP 11 (6-22 (CALC)); BUN 53 mg/dL (8-23); BUN/CREATININE RATIO 58 (12-20 (CALC)); CARBON DIOXIDE 33 mmol/l (22-30); CHLORIDE 103 mmol/l (95-108); CREATININE 0.9 mg/dL (0.7-1.3); GFR > 60 ML/MIN (>=60 (CALC)); GFR FOR AFR.AMER. > 60 ML/MIN (>=60 (CALC)); POTASSIUM 4.8 mmol/l (3.5-5.1); SODIUM 142 mmol/l (137-146)
--- NOTE | 2019-06-21 06:00 | NUR ---
eyes closed. no distress. desk monitor shows sinus tach pacs pvcs hr 104
--- NOTE | 2019-06-21 07:00 | NUR ---
PT RESTING IN BED AWAKE. PT IS ALERT AND ORIENTED X3. SHIFT ASSESSMENT COMPLETED X3. IV PATENT X2. CALL LIGHT IN REACH. WILL CONTINUE TO CLOSELY MONITOR.
--- NOTE | 2019-06-21 07:40 | NUR ---
PT SET UP FOR AM MEAL.
--- NOTE | 2019-06-21 09:15 | NUR ---
HELIO JACKSON APRN AT BEDSIDE AT THIS [facility]
--- NOTE | 2019-06-21 09:20 | NUR ---
DISCUSSED WITH PATIENT THAT HE WILL NEED TO BRING SILDENAFIL FROM HOME. PT STATES THAT HE WILL HAVE HIS BRING IT IN LATER.
--- NOTE | 2019-06-21 11:15 | NUR ---
PT SITTING UP ON SIDE OF BED CAME TO NURSES STATION STATES PT IS BLEEDING. PT HAD BECOME DISCONNECTED FROM IV LUER LOCK. PT ASSISTED TO CHAIR AT [facility]. PT CLEANED UP. NEW LUER LOCK APPLIED. LINENS CHANGED. PT TOLERATED WELL. WILL CONTINUE TO MONITOR.
--- NOTE | 2019-06-21 11:48 | NUR ---
PT SEATED UP IN CHAIR AT BEDSIDE EATING NOON MEAL
--- NOTE | 2019-06-21 12:08 | NUR ---
PT ASSISTED BACK TO BED AT THIS TIME
--- NOTE | 2019-06-21 13:25 | NUR ---
DR MOORE AT BEDSIDE AT THIS TIME
--- NOTE | 2019-06-21 14:31 | NUR ---
PT RESTING IN BED AWAKE. RESP ARE EVEN AND UNLABORED. NO DISTRESS NOTED CALL LIGHT IN REACH. WILLCONTINEU TO MONITOR
--- NOTE | 2019-06-21 16:25 | NUR ---
PT RESTING IN BED VISITING WITH AT BEDSIDE. RESP ARE EVEN AND UNLABORED. NO DISTRESS NOTED. CALL LIGHT IN REACH. WILL CONTINUE TO MONITOR.
--- NOTE | 2019-06-21 17:18 | NUR ---
PT SET UP FOR PM MEAL
--- NOTE | 2019-06-21 18:33 | NUR ---
PT DYSPNEIC AND SOB ON EXERTION MORE THAN EARLIER THIS SHIFT. O2 SAT IN LOW 80S AND SOME 70S. DR MOORE NOTIFIED. NEW ORDERS RECEIVED.
--- NOTE | 2019-06-21 18:47 | NUR ---
RT AT BEDSIDE TO DRAW ABG
--- NOTE | 2019-06-21 18:50 | NUR ---
rt here. abgs drawn.
--- NOTE | 2019-06-21 18:51 | NUR ---
RADIOLOGY AT BEDSIDE FOR CXR
--- NOTE | 2019-06-21 18:54 | NUR ---
xray here. pcxr obtained.
--- NOTE | 2019-06-21 19:15 | NUR ---
awakens easily. denies distress. ultrasonic solderer shows sinus tach pacs pvcs. #22 lac ns infusing @ 10cchr. #20 rt chest saline lock. po fluids taken well. voids per urinal. dsgs to ble in place. foul odor cont. fall precautions cont. rt @ bedside. spoke to pt @ length regarding bipap. pt verbalized understanding. bipap initiated.
--- NOTE | 2019-06-21 19:55 | NUR ---
ABG DRAWN AND ANALYSED. RESULT ON [employer]. MD CALLED WITH RESULT AND REPEATED. MD ORDERED TO PLACE THE PATIENT ON BIPAP. BIPAP SETTING 14/, 16, 60% FIO2.WILL CONTINUE TO MONITOR.
--- NOTE | 2019-06-21 21:20 | NUR ---
dr berkowitz called this telegraphic typewriter installer. updated on pts condition. no new orders.
--- NOTE | 2019-06-21 21:40 | NUR ---
lab here. blood drawn.
[2019-06-22] VITALS (12 sets, daily range): BP systolic 93–150; BP diastolic 41–81
--- NOTE | 2019-06-22 00:01 | NUR ---
pt has removed bipap several times during what appears to be him sleeping-replaced without incident.
--- NOTE | 2019-06-22 02:00 | NUR ---
eyes closed. resps even & unlabored. bipap cont. supervisor paper testing shows sinus rhythm pacs pvcs hr 82.
--- NOTE | 2019-06-22 04:00 | NUR ---
up to bsc per request. voided on floor then assisted back to bed. bipap cont. denies distress.
--- NOTE | 2019-06-22 04:59 | NUR ---
lab here. blood drawn.
[2019-06-22 05:21] LABS: HEMATOCRIT 38.4 % (39.0-50.0); HEMOGLOBIN 11.3 g/dl (14.0-18.0); MEAN CELL VOLUME 89.1 fL CALC (80.0-100.0); MEAN CORPUSCULAR HGB 26.2 pG CALC (26.0-32.0); MEAN CORPUSCULAR HGB CONC 29.4 g/L CALC (32.0-36.0); RED BLOOD COUNT 4.31 mill/uL (4.70-6.10); RED CELL DISTRI WIDTH 16.3 % (11.5-15.5)
[2019-06-22 05:40] LABS: ANION GAP 9 (6-22 (CALC)); BUN 41 mg/dL (8-23); BUN/CREATININE RATIO 58 (12-20 (CALC)); CARBON DIOXIDE 36 mmol/l (22-30); CHLORIDE 103 mmol/l (95-108); CREATININE 0.7 mg/dL (0.7-1.3); GFR > 60 ML/MIN (>=60 (CALC)); GFR FOR AFR.AMER. > 60 ML/MIN (>=60 (CALC)); MAGNESIUM 2.1 mg/dL (1.6-2.3); SODIUM 143 mmol/l (137-146)
[2019-06-22 05:51] LABS: POTASSIUM 5.3 mmol/l (3.5-5.1)
--- NOTE | 2019-06-22 07:05 | NUR ---
PATIENT AWKE, ALERT AND ORIENTED X3 ON ROUNDS. O2 ON AT 10 L/MIN HI FLOW. PATIENT ASISSTED UP TO BEDSIDE CHAIR FOR BREAKFAST. IV IN LAC, SITE BENIGN, NS INFUSING AT KVO. SALINE LOCK IN RIGHT CHEST, SITE BENIGN. MONITOR SR WITH [PAC'SAND PVC'S.
--- NOTE | 2019-06-22 07:22 | NUR ---
Vancomycin consult Current dose being given: 1000 mg Current dosing interval: 12 hrs Current infusion time (hrs): 2 Trough level obtained: 9 mcg/ml Timing of trough - # of hrs before next dose: 0.5 Hrs rate constant (fercho): 0.069 hr-1 Half-life: 10.05 Hours Vd from levels: 90.79 Liters (0.7 L/kg) CLvanco= 6.265 L/hr Increase Vancomycin to 1250 mg q 12 hrs starting at 1000 Infuse over 2 hrs Expected Cpeak: 23 mcg/mL Expected Ctrough: 11 mcg/mL Next trough 06/23/19 at 2130
--- NOTE | 2019-06-22 08:40 | NUR ---
Percy BLANCAS/NOBLE HERE TO SEE PATIENT. ABG'S ORDERED. PATIENT O2 SAT RUNS LOW, IN THE 70'S. PATIENT DOES NOT APPEAR SOB AND DENIES FEELING SOB, HE IS ABLE TO CARRY ON A CONVERATION WITHOUT MARAL WINDED.
--- NOTE | 2019-06-22 08:40 | NUR ---
ABG'S DONE ON 12 L HF O2- PCO2 56, PO2 52. O2 DECREASED TO 8 L BY RT.
--- NOTE | 2019-06-22 10:15 | NUR ---
PATIENT UP TO BSC, VOIDED, NO BM. ASSISTED BACK TO BED. ASSISTED PATIEENT WITH BED BATH. VSS.
--- NOTE | 2019-06-22 10:30 | NUR ---
O2 SATS IN 70'S REPORTED TO Percy BLANCAS/NOBLE BY Janette PINA/ELISEO-O2 INCREASED TO 12 L HF ORDERED.
--- NOTE | 2019-06-22 10:57 | NUR ---
IN TO VISIT. O2 SATS 84-86% AT THIS TIME.
--- NOTE | 2019-06-22 11:25 | NUR ---
DR MOORE INTO SEE PATIENT. NEW ORDERS RECEIVED.
--- NOTE | 2019-06-22 12:05 | NUR ---
SOLUMEDROL 40 MG AND LASIX 40 MG IVP GIVEN ORDERED. PATIENT ATE FAIR FOR LUNCH TRAY. DIURESING WELL FROM LASIX.
--- NOTE | 2019-06-22 13:00 | NUR ---
PATIENT RESPONDING WELL TO IV LASIX GIVEN EARLIER.
--- NOTE | 2019-06-22 13:55 | NUR ---
PHONED [facility] TO INITIATE TRANSFER PROCESS. SPOKE WITH DESIRE. ALL INFO PROVIDED. FACE SHEET FAXED.
--- NOTE | 2019-06-22 14:30 | NUR ---
SPOKE WITH PATIENT SIMONA SHE IS AWARE OF PLAN OF CARE TO TRANFER TO [facility].
--- NOTE | 2019-06-22 16:00 | NUR ---
PATIENT NAPPING ON AND OFF. VSS. REMAINS ON O2 12 L HF. SR WITH PAC'S AND PVC'S.
--- NOTE | 2019-06-22 16:45 | NUR ---
CALL PLACED TO [facility] TO INFORM OF TRANSFER TO [facility]. ETA 45 MINUTES.
--- NOTE | 2019-06-22 16:45 | NUR ---
shirley called with a bed [id number] report can be called to [phone].
--- NOTE | 2019-06-22 17:15 | NUR ---
EVERTON FROM [facility] CALLED TO INFORM PATIENT WILL NOT LEAVE FOR AT LEAST A FEW HOURS. PATIENT INFORMED THAT TRANSFER IS DELAYED TILL THIS EVENING.
--- NOTE | 2019-06-22 17:30 | NUR ---
ASSISTED TO BEDSIDE CHAIR FOR DINNER.
--- NOTE | 2019-06-22 18:00 | NUR ---
BACK TO BED WITH MINIMAL ASSIST. VSS.
--- NOTE | 2019-06-22 19:05 | NUR ---
REPORT RECEIVED FROM ELISEO DOYLE.
--- NOTE | 2019-06-22 19:37 | NUR ---
PT SITTING UP IN BED; ALERT AND ORIENTED. MITRA PAIN. RESPIRATIONS EVEN AND UNLABORED ON OXYGEN 12L HIGH FLOW NC. ASSESSMENT COMPLETED AT THIS TIME. LUNGS ARE CLEAR WITH SOME EXPIRATORY WHEEZING IN THE BASES. ABD SOFT AND DISTENDED WITH GOOD BS. LEGS WRAPS INTACT TO BLE; PT STATES WOUND CARE WAS IN TO CHANGE THEM TODAY. PLAN OF CARE REVIEWED. PT ENCOURAGED TO VERBALIZE CONCERNS. STATES UNDERSTANDING. SAFETY MEASURES IN PLACE. CALL LIGHT WITHIN REACH.
--- NOTE | 2019-06-22 21:12 | NUR ---
[facility] ON UNIT AND REPORT GIVEN.
--- NOTE | 2019-06-22 21:18 | NUR ---
Discharge instructions given. Patient verbalizes understanding of same. Discharged in stable condition via [facility] to [facility] with staff. All belongings sent with pt.
--- NOTE | 2019-06-22 21:57 | NUR ---
REPORT CALLED TO [facility].
== END 2019-06-22 21:18 | disposition short-term general hospital (02) | DRG 871 ==
LOC: ED 14:06 → ED-I 15:34 → ED 15:55 → ICU 15:56
PROVIDERS: Family Medicine; Nurse Practitioner Family; ADMIT Internal Medicine; ATTEND Internal Medicine
PROC: 3E02340 Introduction of Influenza Vaccine into Muscle, Percutaneous Approach (ICD-10-PCS; 2019-06-19)
PROC: 5A09357 Assistance with Respiratory Ventilation, Less than 24 Consecutive Hours, Continuous Positive Airway Pressure (ICD-10-PCS; principal; 2019-06-21)
DX: A41.9 Sepsis, unspecified organism (principal); R65.21 Severe sepsis with septic shock; J96.21 Acute and chronic respiratory failure with hypoxia; J96.22 Acute and chronic respiratory failure with hypercapnia; I50.43 Acute on chronic combined systolic (congestive) and diastolic (congestive) heart failure; L03.115 Cellulitis of right lower limb; L03.116 Cellulitis of left lower limb; N17.9 Acute kidney failure, unspecified; I13.0 Hypertensive heart and chronic kidney disease with heart failure and stage 1 through stage 4 chronic kidney disease, or unspecified chronic kidney disease; E87.1 Hypo-osmolality and hyponatremia; L97.229 Non-pressure chronic ulcer of left calf with unspecified severity; L97.219 Non-pressure chronic ulcer of right calf with unspecified severity; N18.3 Chronic kidney disease, stage 3 (moderate); I89.0 Lymphedema, not elsewhere classified; E87.6 Hypokalemia; J44.9 Chronic obstructive pulmonary disease, unspecified; I95.89 Other hypotension; I27.20 Pulmonary hypertension, unspecified; E86.0 Dehydration; E78.5 Hyperlipidemia, unspecified; I25.10 Atherosclerotic heart disease of native coronary artery without angina pectoris; G47.33 Obstructive sleep apnea (adult) (pediatric); E66.9 Obesity, unspecified; R32 Unspecified urinary incontinence; Z86.73 Personal history of transient ischemic attack (TIA), and cerebral infarction without residual deficits; Z99.81 Dependence on supplemental oxygen; Z87.891 Personal history of nicotine dependence; Z68.38 Body mass index [BMI] 38.0-38.9, adult; Z91.19 Patient's noncompliance with other medical treatment and regimen; Z23 Encounter for immunization
CPT/HCPCS: A6198; J0692; J3370

== ENCOUNTER 2021-01-22 07:28 | Inpatient (IN) | payer MEDICARE, OTHER ==
[~2021-01-22] VITALS: Ht 180.3 cm; Wt 109.0 kg
[~2021-01-22 07:28] MED LIST changes: +CEFEPIME1 G2 IV; +FUROSEMIDE20 MG PO; +SILDENAFIL20 MG PO
--- NOTE | 2021-01-22 07:30 | NUR ---
PT CAME BY EMS WITH IV SITE, ON OXYGEN AT 4 LITRES PER N/C, WHICH IS WHAT PT IS ON AT HOME. PT ALERT/ORIENTED X3, STARTED BECOMING SOB YESTERDAY AND BECAME WORSE THROUGHT NIGHT. 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 IS SEEN BY WOUND CARE AND HOME HEALTH NURSE 3 TIMES A WEEK FOR SWELLING AND REDNESS TO PINA LEGS. ALSO HAS CPAP AT HOME BUT JUST WAS NOT WORKING. CALLED FOR RESP TO COME DO BREATHING TREATMENT AND ABG. DENIES ANY COUGH, CONGESTION OR CHEST PAIN, JUST INCREASED SOB. PT STATES HAS HAD BOTH COVID SHOTS AND FLU AND PNEUMONIA THIS YEAR. SATS DURING TRIAGE WE IN LOW 70'S WITH OXYGEN. RESP UNABLE TO OBTAIN ABG AT THIS TIME. CALLED FOR BIPAP MACHINE TO HELP PT SATS AND BREATHING. RHONCHI HEARD THRU OUT LUNG MONTIEL, NO WHEEZING NOTED.
[2021-01-22 08:03] LABS: HEMATOCRIT 51.2 % (39.0-50.0); HEMOGLOBIN 15.6 g/dl (14.0-18.0); IMMATURE GRANULOCYTES 0.9 % (0.0-5.0); MEAN CORPUSCULAR HGB 25.9 pG CALC (26.0-32.0); MEAN CORPUSCULAR HGB CONC 30.5 g/dL CAL (32.0-36.0); NEUT# 21.85 thou/uL (1.82-7.42); RED BLOOD COUNT 6.02 mill/uL (4.70-6.10); RED CELL DISTRI WIDTH 18.9 % (11.5-15.5)
--- NOTE | 2021-01-22 08:04 | NUR ---
MEDICATION RECONCILIATION COMPLETED WITH PATIENT ASSISTANCE.
[2021-01-22 08:15] LABS: ALBUMIN 3.9 g/dL (3.2-5.0); CREATININE 1.5 mg/dL (0.7-1.3); POTASSIUM 4.4 mmol/l (3.5-5.1); TOTAL PROTEIN 8.9 g/dL (6.3-8.2)
--- NOTE | 2021-01-22 08:15 | NUR ---
PT REMAINS ALERT/ORIENTED, STATES FEELS BETTER ON BIPAP.
--- NOTE | 2021-01-22 08:23 | NUR ---
PT LAUGHING AND JOKING WITH STAFF, AT BEDSIDE. SATS ON BIPAP STAY IN THE UPPER 90'S, BLOOD PRESSURE STABLE. RESP HERE TO TRY FOR ABG AGAIN. PULSE OX IS PLACED ON LEFT EAR GIVING A BETTER READING.
[2021-01-22 08:30] LABS: BILIRUBIN, TOTAL 4.8 mg/dL (0.0-1.4)
--- NOTE | 2021-01-22 09:02 | NUR ---
BM, BROWN FORMED, CLEANED PT UP AND CHANGED SHEETS. UNABLE TO OBTAIN URINE AT THIS TIME . REFUSING OFFER OF CATH FOR OBTAINING URINE SPECIMEN.
--- NOTE | 2021-01-22 09:08 | NUR ---
PT SITTING UP IN STRETCHER, REMAINS ALERT/ORIENTED, REMAINS ON CPAP, WITH SATS @ 100%, ANTIBIOTICS INFUSING WITH NORMAL SALINE, IV SITE HEALTHY.
--- NOTE | 2021-01-22 09:17 | NUR ---
DR. AN SPEAKING WITH DR. ADAMS ABOUT ADMISSION, PT IS TO BE AN ICU ADMISSION . PT NOTIFIED OF UPDATE.
--- NOTE | 2021-01-22 09:37 | NUR ---
FIO2 DECREASED TO 35%.
--- NOTE | 2021-01-22 09:50 | NUR ---
RECEIVED REPORT FROM LISANDRA AT THIS TIME. PATIENT RESTING IN BED, AAOX4 ON BIPAP, ASKING FOR WATER. BLE VERY EDEMATOUS AND DRAINING SEROUS FLUID. CLEAN CHUX PLACED UNDERNEATH. VSS AT THIS TIME, IV ROCEPHIN INFUSING TO LEFT ARM ALMOST COMPLETE. POC REVIEWED. PATIENT VERBALIZES UNDERSTANDING. CALL FERNÁNDEZ GIVEN TO PATIENT AND USE EXPLAINED WITH RETURN DEMONSTRATION. WCTM CLOSELY. BED LCOKED AND IN LOWEST POSITION.
--- NOTE | 2021-01-22 10:00 | NUR ---
PT REPORT GIVEN TO CUONG RN OR CONTINUATION OF CARE, PT REMAINS ON BIPAP AND RESTING QUIETLY AT THIS TIME, WITH STRETCHER IN 30% HOB
--- NOTE | 2021-01-22 10:30 | NUR ---
PATIENT RESTING, WATER PROVIDED. PATIENT TOLERATED WELL.
--- NOTE | 2021-01-22 11:30 | NUR ---
INPATIENT HOSPITAL BED REQUESTED.
--- NOTE | 2021-01-22 11:58 | NUR ---
BIPAP REMOVED BY RT SO PATIENT CAN EAT. NC APPLIED.
--- NOTE | 2021-01-22 11:58 | NUR ---
FOOD TRAY PROVIDED AND PATIENT SAT UP TO EAT. ANDREIA PERALES STATES HE IS COMFORTABLE POSSIBLE. AWAITING INPATIENT HOSPITAL BED.
--- NOTE | 2021-01-22 12:00 | NUR ---
BIPAP PLACED STANDBY. PLACED ON 4L NC.
--- NOTE | 2021-01-22 12:15 | NUR ---
PATIENT PLACED ON HOSPITAL BED FOR COMFORT STATED BY PATIENT. PATIENT STATED HE DIDNT FEEL VERY HUNGRY.
--- NOTE | 2021-01-22 12:24 | NUR ---
BETZY IN ROOM TO REPEAT EKG.
--- NOTE | 2021-01-22 13:30 | NUR ---
PATIENT RESTING, EYES CLOSED. NAD NOTED AND CONTINUING TO MONITOR CLOSELY.
--- NOTE | 2021-01-22 14:45 | NUR ---
PATIENT STATES HE HAS NOT URINATED SINCE 3 AM. ASSISTED PATIENT TO THE SIDE OF THE BED TO ATTEMPT PATIENT STATES HE DOES NOT WANT A [place] URINARY CATHETER.ATTEMPT UNSUCCESSFUL. ASSISTED PATIENT BACK TO BED AND PATIENT THEN WAS ABLE TO URINATE 150 CC OF REDDISH COLORED URINE. SENT TO LAB. BLADDER SCAN COMPLETED POST VOID WITH 216 ML OF URINE TO BE NOTED. WILL CONTINUE TO MONITOR.
--- NOTE | 2021-01-22 15:01 | NUR ---
PATIENT RESTING, EYES CLOSED, TOLERATING 4 LITERS NC AT 94%. CONTINUING TO MONITOR CLOSELY.
[2021-01-22 15:57] LABS: URINE BLOOD DIPSTICK SMALL (NEGATIVE); URINE COLOR YELLOW; URINE GLUCOSE - DIPSTICK NEGATIVE (NEGATIVE); URINE KETONE NEGATIVE (NEGATIVE); URINE LEUK ESTERASE NEGATIVE (NEGATIVE); URINE PH 5.5 (4.5-8.0); URINE PROTEIN - DIPSTICK 100 mg/dL (NEG-TRACE); URINE SPECIFIC GRAVITY >=1.030
[2021-01-22 15:58] LABS: URINE BILIRUBIN - DIPSTICK MODERATE (NEGATIVE); URINE NITRITE - DIPSTICK POSITIVE (Negative)
[2021-01-22 16:00] LABS: URINE BACTERIA FEW hpf
--- NOTE | 2021-01-22 16:30 | NUR ---
AT BEDSIDE, PATIENT RESTING, EYES CLOSED.
--- NOTE | 2021-01-22 17:41 | NUR ---
O2 SAT DETECTOR REPLACED. O2 SATS ARE 85% ON 5 LITERS. RT CALLED AT THIS TIME.
--- NOTE | 2021-01-22 17:47 | NUR ---
RT AT BEDSIDE. PATIENT STATES THIS IS NORMAL FOR HIM. RT PLACED HIM ON 6 LITERS. O2 SATS AT 87%.
--- NOTE | 2021-01-22 17:56 | NUR ---
COMMUNICATION TO DR ADAMS AT THIS TIME. AWAITING RESPONSE.
--- NOTE | 2021-01-22 18:13 | NUR ---
SPOUSE WENT HOME, ASKED HER TO BRING CPAP AND SILDENOFIL FROM HOME TOMORROW WHEN SHE RETURNS. STATES SHE WILL.
--- NOTE | 2021-01-22 18:35 | NUR ---
RT CALLED AND PATIENT AGREED TO BE PLACED BACK ON BIPAP.
--- NOTE | 2021-01-22 18:50 | NUR ---
PATIENT SATS ARE BACK UP TO 94% ON BIPAP
--- NOTE | 2021-01-22 18:55 | NUR ---
DR ADAMS UPDATED ON PATIENTS STATUS. ORDERS PLACED BY HIM.
--- NOTE | 2021-01-22 19:00 | NUR ---
REPORT SCOTT ESCOBEDO RN
--- NOTE | 2021-01-22 19:00 | NUR ---
REPORT GIVEN BY [facility] ER NURSE. PATIENT IS RESTING IN BED WITH BIPAP IN PLACE. RESP EVEN AND UNLABORED. NO S/S OF DISTRESS NOTED. FALL AND SAFTEY PRECAUTIONS IN PLACE. ALERT AND ORIENTED X 4. IV INFUSING FLUIDS. PATIENT REFUSING BARAHONA CATH AND USING URINAL. BLE EXTREMELY SWOLLEN, RED, AND WARM TO THE TOUCH. DRESSING PRESENT FROM [facility], LAST DRESSING CHANGE SATURDAY 01/20. PLAN OF CARE DISCUSSED. PATIENT INFORMED TO CALL WITH ANY QUESTIONS OR CONCERN.
[2021-01-22 20:00] VITALS: BP 115/71
[2021-01-22 21:00] VITALS: BP 123/68
--- NOTE | 2021-01-22 21:36 | NUR ---
UPDATED ON REPEAT LACTIC ACID AND PRCALCITONIN LEVELS. REVIEWED MEDICATIONS AND IV FLUIDS. NEW ORDERS TO DECREASE IV FLUIDS RATE FROM 150 ML/HR TO 100ML/HR DUE TO IMPROMENT ON LACTIC ACID.
[2021-01-22 22:00] VITALS: BP 122/67
[2021-01-22 23:00] VITALS: BP 131/80
[2021-01-23] VITALS (18 sets, daily range): BP systolic 67–149; BP diastolic 43–81
--- NOTE | 2021-01-23 00:02 | NUR ---
PATIENT RESTING WITH EYES CLOSED. RESP EVEN AND UNLABORED WITH BIPAP IN PLACE. I ABX STARTED PER MD ORDERS.
--- NOTE | 2021-01-23 02:30 | NUR ---
PATIENT RESTING WITH EYES CLOSED. RESP EVEN AND UNLABORED. NO S/S OF DISTRESS NOTED. FALL AND SAFTEY PRECAUTIONS IN PLACE.
--- NOTE | 2021-01-23 04:59 | NUR ---
PATIENT REQUESTING BIPAP TO BE REMOVED. BIPAP REMOVED AND PATIENT PLACED ON 5L VIA NC. FALL AND SAFTEY PRECAUTIONS IN PLACE. NO S/S OF DISTRESS NOTED.
--- NOTE | 2021-01-23 05:17 | NUR ---
PATIENT O2 SAT 85-87%, PATIENT EDUCATED ON WEARING BIPAP TO KEEP O2 SAT GREATER THAN 90%. PATIENT STATES AT HOME HE STAYS AROUND 85% WHEN HE WEARS HIS NC. CURRENTLY REFUSING TO WEAR BIPAP.
[2021-01-23 05:40] LABS: IMMATURE GRANULOCYTES 0.6 % (0.0-5.0); MEAN CELL VOLUME 83.9 fL CALC (80.0-100.0); MEAN CORPUSCULAR HGB 25.9 pG CALC (26.0-32.0); MEAN CORPUSCULAR HGB CONC 30.9 g/dL CAL (32.0-36.0); NEUT# 18.01 thou/uL (1.82-7.42); RED BLOOD COUNT 5.17 mill/uL (4.70-6.10); RED CELL DISTRI WIDTH 18.2 % (11.5-15.5)
[2021-01-23 05:54] LABS: HEMATOCRIT 43.4 % (39.0-50.0); HEMOGLOBIN 13.4 g/dl (14.0-18.0)
[2021-01-23 05:55] LABS: ALKALINE PHOSPHATASE 162 u/l (38-126); ANION GAP 13 (6-22 (CALC)); BUN 25 mg/dL (8-23); BUN/CREATININE RATIO 19 (12-20 (CALC)); CARBON DIOXIDE 22 mmol/l (22-30); CHLORIDE 103 mmol/l (95-108); CREATININE 1.3 mg/dL (0.7-1.3); GFR 55 ML/MIN (>=60 (CALC)); GFR FOR AFR.AMER. > 60 ML/MIN (>=60 (CALC)); POTASSIUM 4.7 mmol/l (3.5-5.1); SGOT/AST 34 u/l (19-48); SODIUM 134 mmol/l (137-146)
[2021-01-23 06:02] LABS: ALBUMIN 2.9 g/dL (3.2-5.0); TOTAL PROTEIN 6.8 g/dL (6.3-8.2)
--- NOTE | 2021-01-23 07:30 | NUR ---
PT REPORT RECEIVED FROM FARMWORKER MACHINE. PT WAS HELD IN ER AND AT 0730 WAS TRANSFERRED TO ICU 8. PT STATES SLEPT WELL, WAS ON BIPAP THRU THE NIGHT, BUT WAS TAKEN OFF AND SWITCHED TO N/C AT 6 LITRES WITH SATS STAYING AROUND 89%. PT STATES IS ON OXYGEN AT HOME ON 4 LITRE AND THE DOCTOR WANTS HIS SATS TO BE ABOVE 82 HE SAYS HE USUALLY IS AT 85 IS A NORMAL FOR HIM. HE USES HIS OWN CPAP AT NIGHT AT HOME, PT IS ALERT/ORIENTED, ANSWERING ALL QUESTIONS. HE SAYS HE NORMALLY HAS DRESSING CHANGES BILATERAL LEGS ON SATURDAY, SATURDAY AND SATURDAY. HAS BEEN HAVING DRESSING CHANGES TO LEGS FOR YEARS, IS A CHRONIC COMPLAINT OF SWELLING, REDNESS, AND WEEPING TO LEGS. PT ABLE TO ANSWER ALL QUESTIONS CLEARLY. IS ON HIGH FLOW AT 6 LITRES AT THIS TIME WITH SATS 90%.
--- NOTE | 2021-01-23 09:15 | NUR ---
DR. ADAMS WOULD LIKE A WOUND CONSULT PER DR. PORTILLO OBTAINED. CALLED EXT [phone] AND LEFT MESSAGE FOR A CONSULT
--- NOTE | 2021-01-23 10:06 | NUR ---
DR. ADAMS WANTED PINA LEGS UNDRESSED, WASHED WITH SOAP AND WATER AND WRAPPED IN EDITH UNTIL WOUND CARE CONSULT. PT THEN PLACED IN RECLINER WITH PAD PLACED UNDERNEATH FEET BECAUSE OF DRAINAGE.
--- NOTE | 2021-01-23 10:08 | NUR ---
CASE MANAGEMENT HERE SPEAKING WITH PT.
--- NOTE | 2021-01-23 10:41 | NUR ---
PT HAD LARGE BOWEL MOVEMENT, DID NOT GIVE ORDERED LAXATIVE, AND DID NOT GIVE TOPROL B/P 99/58
--- NOTE | 2021-01-23 11:08 | NUR ---
PT REQUESTING TYLENOL FOR LEG
--- NOTE | 2021-01-23 11:48 | NUR ---
PT'S BROUGHT MEDICATION SILDENAFIL 20MG FROM HOME. CALLED PHARMACY FOR PICKUP.
--- NOTE | 2021-01-23 12:25 | NUR ---
AT BEDSIDE, CONSENT SIGNED FOR TRANSFER TO [facility] FOR CTA, PACKET READY FOR [facility] AND CALLED AND SPOKE TO A RAMILA FROM [facility] , SHE STATES THAT A RIG WILL BE HERE IN 30 MIN.
--- NOTE | 2021-01-23 13:00 | NUR ---
[facility] HERE FOR TRANSFER TO [facility] FOR CTA OF CHEST
--- NOTE | 2021-01-23 13:33 | NUR ---
PT TAKEN WITH MEDICAL TRANSPORT TO THE [facility] FOR CTA
--- NOTE | 2021-01-23 14:06 | NUR ---
CALL FROM ISAURA AT [facility] STATING THAT HIS GFR AND KIDNEY FUNCTION LABS WERE OUT OF NORMAL AND TO VERIFY THAT DR. ADAMS STILL WOULD WANT CTA OR A LOW DOSE. CALLED DR. ADAMS AND HE STATED YES HE STILL WANTS IT DONE , RETURNED CALL TO ISAURA AT [phone] JACK STILL WANTED CTA DONE AND TO WRITE HIS NAME DOWN THAT HE WAS SPOKEN TO ABOUT TEST.
--- NOTE | 2021-01-23 14:42 | NUR ---
S: NIXON JAIMES is a 70 M who presents with SEPSIS. He has a history oF PNEUMONIA FLU AND PULMONARY HTN. All medications in patient's chart were reviewed. O: VS: BP 107/75, P 97, RR 24,T 98. W 109kg, HT 71 IN, Scr= 1.3,CrCl= 66ml/min A: Blood culture is pending Urine culture is pending P: Patient is on ZOSYN 3.375 GM Q6H . Vancomycin ordered for pharmacy to dose. Start Vancomycin 1 GRAM IV Q12H. Vancomycin trough is drawn before the 4th dose on 01/24/21 0730. Vancomycin goal trough is between 15-20 mcg/ml. Pharmacy will follow and or advise on antibiotics use as needed. EDUAR RODRIGUEZD
--- NOTE | 2021-01-23 15:11 | NUR ---
DANIE CALLED TO ASK FOR FAX NUMBER AND THEY ARE SENDING PT BACK AND WILL FAX THE REPORT WHENIT IS READ.
--- NOTE | 2021-01-23 16:00 | NUR ---
PT BACK FROM [facility], BROUGHT IN PER [facility] WITH NRB, BECAUSE PTS OXYGEN SATS HAD DROPPED DURING LAYING DOWN FLAT FOR CTA, AND THEN BECAME ANXIOUS, PT UP OFF OF [place] STRETCHER INTO RECLINER, PT PLACED BACK ON MONITER, BLOOD PRESSURE WAS DOWN TO 89/50, PLACED PT ON NEW ORDER FROM DR. MCMANUS OF NS @ 50CC/HR. LAID PT BACK IN RECLINER WITH FEET UP. PT DIDNT WANT TO GO BACK TO BED. STATES FEELS BETTER, DENIES ANY INCREASED SOB. SENT PIC OF RADIOLOGY READING TO DR. ADAMS OF CTA RESULTS. NO NEW ORDERS RECEIVED. PT ON PHONE AT THIS TIME TALKING WITH , NO COMPLAINTS. PT PLACED BACK ON HIGH FLOW N/C AT 6 SATS AT THIS TIME ARE 89%.
--- NOTE | 2021-01-23 18:13 | NUR ---
PT SITTING UP IN RECLINER TALKING WITH . NO COMPLAINTS. ALERT/ORIENTED X3, ADVISED BLOOD PRESSURE WAS A LITTLE LOW, PT STATES IT BOUNCES FROM HIGH TO LOW ALL THE TIME, HE HAS NO COMPLAINTS OF FEELING WEAK OR DIZZY. LAUGHING AND TALKING WITH ..
--- NOTE | 2021-01-23 19:30 | NUR ---
sitting in bedside chair. denies resp diff. o2 cont per nc. #20 lfa ns infusing @ 50cchr. media monitor shows sinus rhythm pacs hr 94. kerlex cont ble weeping yellow drainage. edema conts. voids using bedpan. fall precautions cont.
--- NOTE | 2021-01-23 22:10 | NUR ---
PLACED ON PATIENT'S HOME BIPAP UNIT WITH 6L O2 IN LINE. SPO2 92%. NO DISTRESS NOTED.
[2021-01-24] VITALS (14 sets, daily range): BP systolic 77–113; BP diastolic 47–86
--- NOTE | 2021-01-24 00:01 | NUR ---
remains in bedide chair. home bipap conts. no distress.
--- NOTE | 2021-01-24 02:00 | NUR ---
resting quietly. resps even & unlabored. no apparent distress. residential monitor shows sinus tach pacs hr 102.
--- NOTE | 2021-01-24 04:45 | NUR ---
lab here. blood drawn.
[2021-01-24 05:22] LABS: HEMATOCRIT 44.5 % (39.0-50.0); HEMOGLOBIN 13.8 g/dl (14.0-18.0); IMMATURE GRANULOCYTES 0.6 % (0.0-5.0); MEAN CELL VOLUME 85.1 fL CALC (80.0-100.0); MEAN CORPUSCULAR HGB 26.4 pG CALC (26.0-32.0); NEUT# 17.49 thou/uL (1.82-7.42); RED BLOOD COUNT 5.23 mill/uL (4.70-6.10); RED CELL DISTRI WIDTH 18.4 % (11.5-15.5)
[2021-01-24 05:45] LABS: ALKALINE PHOSPHATASE 172 u/l (38-126); ANION GAP 13 (6-22 (CALC)); BILIRUBIN, TOTAL 2.5 mg/dL (0.0-1.4); BUN 32 mg/dL (8-23); BUN/CREATININE RATIO 25 (12-20 (CALC)); CARBON DIOXIDE 22 mmol/l (22-30); CHLORIDE 104 mmol/l (95-108); CREATININE 1.2 mg/dL (0.7-1.3); GFR 60 ML/MIN (>=60 (CALC)); GFR FOR AFR.AMER. > 60 ML/MIN (>=60 (CALC)); POTASSIUM 4.8 mmol/l (3.5-5.1); SGOT/AST 37 u/l (19-48); SODIUM 134 mmol/l (137-146); TOTAL PROTEIN 7.1 g/dL (6.3-8.2)
--- NOTE | 2021-01-24 06:02 | NUR ---
remains in bedside chair. home bipap conts. no resp distress.
--- NOTE | 2021-01-24 08:15 | NUR ---
PT SITTING IN RECLINER. A&O X4. HOME C-PAP IN PLACE, REMOVED AND PLACED ON HIGHFLOW O2 @10L. PT TOLERATING WELL SUSTAINING 92%. CLEAR/DIMINISHED BREATH SOUNDS HEARD UPON ASUCULTATION. TIRE BALANCER IN PLACE, CURRENTLY SR 87, PT SLIGHTLY HYPOTENSIVE AT THIS TIME, BP MEDICATIONS TO BE HELD. ACTIVE BOWEL SOUNDS X4 QUADRANTS. SMALL LIQUID STOOL NOTED IN BSC. BLE EDEMA NOTED. PT REPORTS TO SEE DR YOUNG OUTPATIENT, HOME SUPPLIES FOR DRESSING CHANGES BROUGHT, WOUND CARE CONSULT PLACED FOR APPROPRIATE DRESSING CHANGE ORDERS. LEGS CURRENTLY WEEPING AT THIS TIME. DRESSINGS TO BLE. DR ADAMS AT BEDSIDE DISCUSSING POC, PER DR ADAMS US OF LLE TO BE OBTAINED, DO DRESSING CHANGE AFTER US. ASSESSMENT COMPLETED. DISCUSSED POC. CALL LIGHT WITHIN REACH.
--- NOTE | 2021-01-24 11:40 | NUR ---
DR DE LOS SANTOS AND DR MATTHEW AT BEDSIDE FOR WOUND CARE EVAL
--- NOTE | 2021-01-24 12:48 | NUR ---
pt currently hypotensive; last bp 78/49; currently asymptomatic, Dr Agustin notified. No other needs from patient at this time. call light left within reach
--- NOTE | 2021-01-24 12:58 | NUR ---
S: NIXON JAIMES is a 70 M who presents with pneumonia, flu, sepsis. He has a history of HTN, lymphedema cellulitus L left, COPD . All medications in patient's chart were reviewed. O: VS: BP: 93/59 mmHg, P: 80 bpm, RR: 32 bpm, T: 97.3 F W: 109 kg, HT: 71 in, Scr= 1.2 , CrCl= 88.31 ml/min Vancomycin trough = 12 A: Blood culture preliminary show no growth. Urine culture final shows <20,000 CFU/ML gram positive haile. Vancomcyin trough slightly below goal of 15-20. Will re-check trough. P: Patient is on Zosyn 3.375 g IV Q6H and vancomycin 1 g IV Q12H. Vancomycin ordered for pharmacy to dose. Continue Vancomycin 1 g IV Q12H. Vancomycin trough is drawn before the 4th dose on 01/25/21 at 1900. Vancomycin goal trough is between 15-20 mcg/ml. Pharmacy will follow and or advise on antibiotics use as needed.
--- NOTE | 2021-01-24 13:01 | NUR ---
PTS AT BEDSIDE
--- NOTE | 2021-01-24 14:20 | NUR ---
PT SITTING IN RECLINER. NO NEEDS AT THIS TIME. CALL LIGHT WITHIN REACH.
--- NOTE | 2021-01-24 16:05 | NUR ---
PT SITTING IN RECLINER. NO NEEDS AT THIS TIME. CALL LIGHT WITHIN REACH.
--- NOTE | 2021-01-24 19:45 | NUR ---
resting quietly in bed in semifowers position. nad. home bipap conts. security monitor shows sinus tach pacs hr 102. #22 lac ns infusing @ 50cchr. ble lymphedema & weeping conts. fall precautions cont.
--- NOTE | 2021-01-24 22:00 | NUR ---
eyes closed. home bipap cont. no distress. conveyor monitor shows sinus rhythm pacs hr 95.
[2021-01-25] VITALS (15 sets, daily range): BP systolic 64–97; BP diastolic 43–67
--- NOTE | 2021-01-25 00:20 | NUR ---
tylenol 650mg po per request for gen disc.
--- NOTE | 2021-01-25 02:00 | NUR ---
awake. requested to "get in the chair." request denied. instructed about physicians order to stay in bed with feet elevated.
--- NOTE | 2021-01-25 04:30 | NUR ---
up to bsc for bm then to recliner with feet elevated. denies need for pillows under legs. linen changed.
--- NOTE | 2021-01-25 05:15 | NUR ---
requested pillows under legs. pillows placed. pt repositioned self in chair.
--- NOTE | 2021-01-25 05:55 | NUR ---
lab here. blood drawn.
--- NOTE | 2021-01-25 06:00 | NUR ---
up to bsc for bm then back to chair. shu well.
[2021-01-25 06:26] LABS: HEMATOCRIT 41.5 % (39.0-50.0); HEMOGLOBIN 13.1 g/dl (14.0-18.0); IMMATURE GRANULOCYTES 0.7 % (0.0-5.0); MEAN CELL VOLUME 83.8 fL CALC (80.0-100.0); MEAN CORPUSCULAR HGB 26.5 pG CALC (26.0-32.0); MEAN CORPUSCULAR HGB CONC 31.6 g/dL CAL (32.0-36.0); NEUT# 13.33 thou/uL (1.82-7.42); RED BLOOD COUNT 4.95 mill/uL (4.70-6.10); RED CELL DISTRI WIDTH 17.8 % (11.5-15.5)
[2021-01-25 06:43] LABS: CREATININE 1.5 mg/dL (0.7-1.3); POTASSIUM 4.3 mmol/l (3.5-5.1)
--- NOTE | 2021-01-25 10:50 | NUR ---
PT SITTING IN CHAIR, WATCHING TV. PT COMFORTABLE. NO COMPLAINTS OR CONCERNS AT THIS TIME.
--- NOTE | 2021-01-25 11:18 | NUR ---
ABX GIVEN IV. RATE OF NS ADJUSTED TO 100ML/HR PER MD ORDERS. PT SITTING COMFORTABLY IN CHAIR WATCHING TV. PERSONAL ITEMS IN REACH. NO NEEDS AT THIS TIME.
--- NOTE | 2021-01-25 13:07 | NUR ---
PT RESTING IN CHAIR, WATCHING TV. AT BEDSIDE. IV LINES SECURED. PT OFFERED DRINK AND TOILETING. PT STATES THAT HE HAS NO CONCERNS OR COMPLAINTS AT THIS TIME.
--- NOTE | 2021-01-25 14:38 | NUR ---
PT SITTING IN CHAIR WATCHING TV. NO COMPLAINTS AT THIS TIME. LEFT BEDSIDE, RN ANSWERED ALL OF 'S QUESTIONS AND INFORMED HER OF UPDATED PLAN OF CARE BEFORE SHE LEFT.
--- NOTE | 2021-01-25 16:10 | NUR ---
PT RESTING IN CHAIR. OFFERED TO MOVE PT TO BED, PT REFUSED. PERSONAL ITEMS IN REACH. PT HAS NO CONCERNS AT THIS TIME.
--- NOTE | 2021-01-25 16:49 | NUR ---
PT SITTING IN CHAIR WATCHING TV. PERSONAL ITEMS IN REACH. PER MD ORDERS, DRESSINGS REMOVED FROM BLE. LEGS WEEPING, SATURATED PADS UNDER FEET X2 WITH YELLOW/CLEAR DRAINAGE FROM LEGS. NO FURTHER CONCERNS AT THIS TIME.
--- NOTE | 2021-01-25 17:55 | NUR ---
PT SITTING IN CHAIR. FINISHED WITH DINNER. PT ADJUSTED IN CHAIR AND MADE COMFORTABLE.
--- NOTE | 2021-01-25 20:15 | NUR ---
PATIENT AWAKENS WITH PAINFUL STIMULI, IS SITTING IN THE RECLINER. IS ORIENTED X4, HAS HOME BIPAP ON, O2 SATS 96%, NO SOB NOTED, NO COMPLAINTS OF PAIN OR SOB. SR ON TELEMETRY, HR 80'S. BP SYTOLIC 90'S. NURSE ASSESSMENT PERFORMED. NILAT MANDARIN SPEAKING NANNY MODERATE. POC DISCUSSED, PATIENT UNDERSTANDS AND AGREES. VANCOMYCIN ANTIBITOIC INFUSING NOW, VANCO TROUGH TONIGHT 19. PATIENT TOLERATES LOVENOX INJECTION, IS ABLE TO SWALLOW BEDTIME MEDICATION, TAKES HIS OWN MASK OFF AND DRINKS WATER WITHOUT DIFFICULTY. ICED WATER PROVIDED PER REQUEST. WAS OFFERED TO ELEVATE LEGS, REFUSES AT THIS TIME, REPORTS HE CAN DO IT WHEN HE GOES TO BED TONIGHT. BILAT LEGS ARE WEEPING. IV X1 INTACT AND WAS REINFORCED WITH COBAN WRAP. NO ACUTE DISTRESS SHOWN. WATCHES TV. CELLPHONE PLACED TO [facility] PER REQUEST. CALL LIGHT WITHIN REACH.
--- NOTE | 2021-01-25 21:12 | NUR ---
URINAL EMPTIED, VOIDED 100 ML, URINE DARK YELLOW/CLOUDY.
--- NOTE | 2021-01-25 22:55 | NUR ---
VANCOMYCIN FINISHED INFUSING. APTIENT IS AWAKE, WATCHES TV, REQUESTS ICE CREAM. REQUESTS HIGH FLOW NC AT 10 L/MIN FOR WHEN HE IS READY TO TAKE HOME BIPAP MASK OFF AND EAT HIS ICE CREAM. WILL CONTINUE TO MONITOR. CALL LIGHT WITHIN REACH.
--- NOTE | 2021-01-25 23:35 | NUR ---
PATIENT UP TO BSC. HAD SMALL LOOSE/BROWN BM. BUTTOCKS CLEANED AND PROVIDED BARRIER OINTMENT FOR REDNESS. DID HAVE INCONTNENT URINE. PATIENT ABLE TO STAND AND PIVOT TO RECLINER. REQUESTS TYLENOL, PROVIDED. CALL LIGHT WIHIN REACH.
[2021-01-26] VITALS (22 sets, daily range): BP systolic 82–111; BP diastolic 44–72
--- NOTE | 2021-01-26 01:54 | NUR ---
PATIENT UP TO BSC, ASSISTED WITH CLEANING AND APPLYING BARRIER OINTMENT TO BUTTOCKS/SCROTUM. PATIENT HAS SMALL LOOSE/LIQUID/BROWN BM AND LARGE INCONTINENT URINE. STOOL COLLECTED FOR CDIFF SAMPLE TO SEND TO LAB. PATIENT NOW SITS IN RECLINER, CLEAN SHEET/BLANKET, AND PADS UNDER BUTTOCKS AND LEGS PROVIDED. PILLOW UNDER FEET WELL. PATIENT REQUESTS ANOTHER MASK FOR HIS BIPAP, WILL CALL RT TO NOTIFY. CALL LIGHT WITHIN REACH.
[2021-01-26 02:36] LABS: C. DIFFICILE TOXIN A&B NEGATIVE (NEGATIVE)
--- NOTE | 2021-01-26 04:33 | NUR ---
LAB ABLE TO DRAW BLOOD FOR AM LABS. PATIENT UP TO BSC FROM RECLINER FOR BM AND INCONTINENT OF URINE. PATIENT WAS EDUACTED THAT PER DR ORDERS LEGS NEEDED TO BE ELEVATED TO HELP WITH LYMPHEDEMA ON BILAT LEGS, PATIENT AGREED TO LAY IN BED WITH FEET ELEVATED. PATIENT NOW LAYS IN HIGH SCHMITT'S PER REQUEST DUE TO SOB WHEN LAYING FLAT. ICED WATER PROVIDED. CLEAN GOWN PROVIDED. PATIENT WAS ALSO OFFERED BED BATHE FOR WHICH HE REFUSES AT THIS TIME. CALL LIGHT WITHIN REACH.
--- NOTE | 2021-01-26 06:00 | NUR ---
PATIENT LAYS IN HIGH SCHMITT'S, SLEEPS WITH HOME BIPAP ON. NO ACUTE DISTRESS SHOWN. CALL LIGHT WITHIN REACH. O SAT 94%.
[2021-01-26 06:04] LABS: HEMATOCRIT 42.2 % (39.0-50.0); HEMOGLOBIN 13.3 g/dl (14.0-18.0); IMMATURE GRANULOCYTES 1.3 % (0.0-5.0); MEAN CELL VOLUME 83.6 fL CALC (80.0-100.0); MEAN CORPUSCULAR HGB 26.3 pG CALC (26.0-32.0); MEAN CORPUSCULAR HGB CONC 31.5 g/dL CAL (32.0-36.0); NEUT# 11.31 thou/uL (1.82-7.42); RED BLOOD COUNT 5.05 mill/uL (4.70-6.10); RED CELL DISTRI WIDTH 17.9 % (11.5-15.5)
[2021-01-26 06:37] LABS: ALBUMIN 3.1 g/dL (3.2-5.0); CREATININE 1.7 mg/dL (0.7-1.3); MAGNESIUM 2.4 mg/dL (1.6-2.3); POTASSIUM 4.5 mmol/l (3.5-5.1); TOTAL PROTEIN 7.2 g/dL (6.3-8.2)
--- NOTE | 2021-01-26 07:27 | NUR ---
PT ALERT/ORIENTED X3, NO COMPLAINTS AT THIS TIME. RESTING IN BED, HAD OWN CPAP ON BUT ASKED FOR NASAL CANNULA , WATCHING TV. PHARMACY CALLED AND SAID THAT WE WOULD BE HOLDING THE VANCOMYACIN THIS AM BECAUSE OF TROUGH A 19
--- NOTE | 2021-01-26 08:49 | NUR ---
SPOKE WITH WOUND CARE ABOUT SPECIFIC INSTRUCTIONS FOR DRESSING CHANGES TO LEGS. DOCTOR STATES SHE WILL BE BY TO SEE HIM AROUND 12.
--- NOTE | 2021-01-26 09:54 | NUR ---
DR. WARNER HERE TO CLARIFY DRESSING ORDERS FOR PT. SPECIFIC INSTRUCTIONS INCLUDE, SOAK KERLEX IN ACETIC ACID AND PLACE ON LEGS FOR 10 MIN. REMOVE DRESSING AND CLEAN WITH NORMAL SALINE. APPLY ZINC OXIDE ( BUTT PASTE) TO LEGS AND THEN ABSORBENT PADS AND WRAP WITH COMPRESSION MIRACLE WRAP, KEEP LEGS ELEVATED.
--- NOTE | 2021-01-26 10:59 | NUR ---
PLACED KERLEX IN ACETIC ACID AND APPLIED TO LEGS FOR 10 MIN. REMOVED AND WASHED WITH NS. APPLIED ZINC OXIDE TO LEGS AND FEET, PLACED ABSORBENT PADS TO BACK AND SIDES OF LEGS, WRAPPED WITH THE TWO LAYER COMPRESSION BANDAGE SYSTEM.
--- NOTE | 2021-01-26 11:46 | NUR ---
PT RESTING QUIETLY ON BED, WATCHING TV AND EATING LUNCH, NO DISTRESS OR COMPLAINTS AT THIS TIME. REMAINS ALERT/ORIENTED X3.
--- NOTE | 2021-01-26 14:29 | NUR ---
left and pt is sleeping at this time, vital signs stable, no complaints or discomfort noted.
--- NOTE | 2021-01-26 17:02 | NUR ---
PT REMAINS SITTING UP IN RECLINER, TALKING ON PHONE. VITAL SIGNS STABLE, DENIES ANY COMPLAINTS.
--- NOTE | 2021-01-26 17:35 | NUR ---
PT UP TO BEDSIDE COMMODE FOR 4 TH TIME TODAY. URINATED ON FLOOR. SMALL AMOUNT OF LOOSE STOOL. PT BACK TO RECLINER FOR DINNER TRAY.
--- NOTE | 2021-01-26 18:21 | NUR ---
PT PLACED BACK IN BED, WITH IV FLUIDS INFUSING AT 100CC/HR. VITAL SIGNS STABLE
--- NOTE | 2021-01-26 19:30 | NUR ---
PATIENT AWAKENS WITH PAINFUL STIMULI. ORIENTED X4. FOLLOWS ALL DIRECTIONS. NO COMPLAINTS OF PAIN OR SOB. ON HOME CPAP, O2 SATS 85%-92%, RESP RATE 20'S/SHALLOW. IS ABLE TPO PULL HIMSELF UP WITH VERBAL CUEING. LAYS IN HIGH SCHMITT'S. IV X1 INTACT, NS INFUSING AT 100 ML/HR. NURSE ASSESSMENT PERFORMED. BLE EDEMETOUS 3+, DRESSING ON BLE CDI, NO WEEPING NOTED AT THIS TIME. BP 90'S SYSTOLIC. SR ON TELEMETRY, HR 90'S. POC DISCUSSED, PATIENT UNDERSTANDS AND AGREES. ICED WATER PROVIDED. PATIENT IS HARD OF HEARING. ICED WATER PROVIDED. HIGH FLOW NC AT BEDSIDE FOR WHEN NEEDS TO DRINK WATER OR EAT.
--- NOTE | 2021-01-26 21:23 | NUR ---
PATIENT ABLE TO SWALLOW BEDTIME MEDICATION WITHOUT DIFFIVULTY, ALSO PROVIDED TYLENOL PER REQUEST. PT WAS ASSISTED TO BSC BY ELISEO RAMIREZ. NOW SITS IN RECLINER. NO ACUTE DISTRESS SHOWN. NO OTHER NEEDS AT THIS TIME. CALL LIGHT WITHIN REACH
[2021-01-27] VITALS (13 sets, daily range): BP systolic 92–123; BP diastolic 66–81
--- NOTE | 2021-01-27 00:49 | NUR ---
patient's o2 sats reading low 80's. no reespiratory distress noted. home cpap mask is loose around the face, attempted to adjust mask, continues to leak. called rt reyez.
--- NOTE | 2021-01-27 00:54 | NUR ---
rt reyez at bedside.
--- NOTE | 2021-01-27 00:59 | NUR ---
rt dereje able to change cpap mask. o2 sats 93%.
--- NOTE | 2021-01-27 02:24 | NUR ---
PATIENT C/O MASK "TO TIGHT ON MY FACE, " AND TAKES IT OFF, REQUESTS TO HAVE HIGH FLOW NC, ON 10 L/MIN, O2 SATS 90%-92%, SOB WITH EXERTION NOTED. WILL CONTINUE TO MONITOR.
--- NOTE | 2021-01-27 06:09 | NUR ---
PATIENT SITS IN RECLINER, REQUESTS TWO PILLOWS ON HIS BACK. VOIDS DARK YELLOW URINE WITH SEDIMENT. IS ON HIGH FLOW NC ON 10 L/MIN. RESP RATE 19. O2 SATS 90%. NO OTHER NEEDS AT THIS TIME. CALL LIGHT WITHIN REACH.
--- NOTE | 2021-01-27 06:50 | NUR ---
PATIENT UP TO BSC, HAS INCONTINENCE OF LOOSE BM. BUTTOCKS WASHED, NEW GOWN PROVIDED. NOW SITS BACK IN RECLINER. NO OTHER NEEDS AT THIS TIME. CALL LIGHT WITHIN REACH.
--- NOTE | 2021-01-27 07:20 | NUR ---
PATIENT RECIEVED FROM NIGHT NURSE
--- NOTE | 2021-01-27 08:00 | NUR ---
PATIENT ASSESSED AT BEDSIDE. VITALS ARE STABLE. SAFTEY MEASURES IN PLACE. CLAL LIGHT IN REACH. WILL CONTINUE TO MONITOR.
--- NOTE | 2021-01-27 10:00 | NUR ---
PATIENT SITTING UP IN BED TALKING ON THE PHONE
--- NOTE | 2021-01-27 12:00 | NUR ---
PATIENT SITTING UP IN CHAIR EATING LUNCH
--- NOTE | 2021-01-27 14:00 | NUR ---
PATIENT IS SITTING IN CHAIR TALKING TO HIS WHO CAME TO VISIT.
--- NOTE | 2021-01-27 16:00 | NUR ---
CLEANING AND REWRAPPED PATIENTS LEGS PER DOCTORS ORDERS. PATIENT STATES HE FEELS MUCH BETTER.
--- NOTE | 2021-01-27 18:00 | NUR ---
PATIENT WAS PLACED BACK IN BED BY CO WORKER.
--- NOTE | 2021-01-27 19:45 | NUR ---
eyes closed. home bipap conts. hob elevated. awakens easily. denies c/o. engine monitor shows sinus rhythm pacs pvcs hr 90. #22 lac ns infusing @ 100cchr. po fluids taken well. voids per urinal. urine shahriar colored. ble dsgs cdi & are elevated on pillows. fall precautions cont.
--- NOTE | 2021-01-27 22:00 | NUR ---
awake. watching tv. bowling alley manager c/o voiced. secured entrance monitor shows sinus rhythm pacs pvcs hr 92.
[2021-01-28] VITALS (16 sets, daily range): BP systolic 74–182; BP diastolic 55–95
--- NOTE | 2021-01-28 00:01 | NUR ---
remains awake. watching tv. no c/o voiced. o2 on per nc.
--- NOTE | 2021-01-28 02:00 | NUR ---
assisted to chair per request. shu green.
--- NOTE | 2021-01-28 04:00 | NUR ---
eyes closed. no distress.cardiac rehab nurse shows sinus rhythm hr 84.
--- NOTE | 2021-01-28 05:30 | NUR ---
to bedside commode then to bed. shu well.
--- NOTE | 2021-01-28 07:02 | NUR ---
PT RESTING QUIETLY ON BED AT THIS TIME, WATCHING TV. ALERT/ORIENTED X3.
--- NOTE | 2021-01-28 09:17 | NUR ---
PT UP TO RECLINER.
[2021-01-28 10:27] LABS: ANION GAP 14 (6-22 (CALC)); BUN 32 mg/dL (8-23); BUN/CREATININE RATIO 29 (12-20 (CALC)); CARBON DIOXIDE 21 mmol/l (22-30); CHLORIDE 107 mmol/l (95-108); CREATININE 1.1 mg/dL (0.7-1.3); GFR > 60 ML/MIN (>=60 (CALC)); GFR FOR AFR.AMER. > 60 ML/MIN (>=60 (CALC)); POTASSIUM 4.8 mmol/l (3.5-5.1); SODIUM 137 mmol/l (137-146)
--- NOTE | 2021-01-28 12:44 | NUR ---
AT BEDSIDE, PT RESTING QUIETLY. NO COMPLAINTS. VITAL SDIGNS STABLE.
--- NOTE | 2021-01-28 14:41 | NUR ---
DRESSING CHANGE TO PINA LEGS DONE, AFTER WASHING LEGS WITH SOAP AND SALINE, BUTT PASTE APPLIED, AND DRESSINGS WITH COBAN AND STOCKINGS APPLIED.
--- NOTE | 2021-01-28 18:23 | NUR ---
PT SITTING UP IN BED EATING DINNER, DENIES ANY COMPLAINTS AT THIS TIME.
--- NOTE | 2021-01-28 19:45 | NUR ---
awake. denies distress, o2 cont per home bipap machine. quality assurance monitor final shows sinus rhythm hr 84. #22 lac ns infusing @ 100cchr. po fluids taken well. voids per urinal & incont. ble dsgs in place-elevated on pillows. fall precautions cont.
--- NOTE | 2021-01-28 22:00 | NUR ---
awake. denies c/o. renovation plant supervisor shows sinus rhythm hr 84.
[2021-01-29] VITALS (13 sets, daily range): BP systolic 84–175; BP diastolic 55–93
--- NOTE | 2021-01-29 00:01 | NUR ---
watching tv. no distress. yard supervisor shows sinus rhythm hr 84.
--- NOTE | 2021-01-29 02:00 | NUR ---
napping for short intervals. monitor car operator shows sinus rhythm hr 88.
--- NOTE | 2021-01-29 04:00 | NUR ---
awake. no c/o voiced. o2 cont per home bipap machine.
--- NOTE | 2021-01-29 06:00 | NUR ---
eyes closed. no distress. home bipap cont. engine monitor shows sinus rhythm hr 82.
--- NOTE | 2021-01-29 09:46 | NUR ---
SMALL BM ON BEDSIDE COMMODE, THEN PT UP TO RECLINER. SPONGE BATH GIVEN. PT RESTING QUIETLY AT THIS TIME
--- NOTE | 2021-01-29 11:53 | NUR ---
PT REMAINS SITTING UP IN CHAIR, NO COMPLAINTS AT THIS TIME, REMAINS ON HIGH FLOW AT 6 LITRE SATS AROUND 88-90, VITAL SIGNS STABLE
--- NOTE | 2021-01-29 15:11 | NUR ---
DRESSING CHANGE DONE PINA LEGS PER PROTOCOL OF WOUND DOCTORS
--- NOTE | 2021-01-29 17:30 | NUR ---
PT RESTING IN BED, VITAL SISGNS STABLE, NO COMPLAINTS AT THIS TIME
--- NOTE | 2021-01-29 19:00 | NUR ---
RECEIVED REPORT NURSE SUZI, PATIENT RESTING IN BED, HOOKED TO O2 @ 6LPM VIA HIGH FLOW NC, BREATHING SHALLOW UNLABORED CALL LIGHT AT REACH.
--- NOTE | 2021-01-29 20:00 | NUR ---
PATIENT CURRENTLY RESTING IN BED, HIGH FOWLERS POSITION, REMAINS ON HOME BIPAP, WITH ONGOING IV AT 100CC/HR INFUSING WELL ON LAC REMAINS ON WHEEL PRESSER SR 85, BILATERAL LEGS WRAP CDI, OCCASIONAL NON PRODUCTIVE COUGH ACTIVE BOWEL SOUNDS, LBM 6/6, CURRENTKY WATCHING TV CALL LIGHT AT REACH.
--- NOTE | 2021-01-29 22:00 | NUR ---
PATIENT REQUESTED TO BE ASSISTED ON HIS CHAIR, ASSISTED TO CHAIR, C/O PAIN ON BLE WILL MEDICATE, CURRENTLY HOOKED TO HOME BIPAP MACHINE, CALL LIGHT AT REACH.
--- NOTE | 2021-01-29 23:08 | NUR ---
IV DUE TO BE CHANGED, OLD IV SITE REMOVED, NEW IV LINE G22 ON RT FOREARM PATENT FLUSHES WELL.
[2021-01-30] VITALS (10 sets, daily range): BP systolic 100–131; BP diastolic 67–94
--- NOTE | 2021-01-30 00:27 | NUR ---
PATIENT CURRENTLY RESTING IN CHAIR, REMAINS ON HOME BIPAP MACHINE, BREATHING UNBORED,[employer] [address] [employer], CALL LIGHT AT REACH.
--- NOTE | 2021-01-30 02:00 | NUR ---
PATIENT RESTING IN CHAIR WITH EYES CLOSED, NOT IN DISTRESS, CALL LIGHT IN REACH.
--- NOTE | 2021-01-30 04:20 | NUR ---
PATIENT RESTING IN CHAIR, REMAINS ON BIPAP, BREATHING SHALLOW UNLABORED, NOT IN DISTRESS CALL LIGHT AT REACH.
--- NOTE | 2021-01-30 06:12 | NUR ---
PATIENT AWAKE AT THIS TIME, SITTING ON CHAIR, NO DISCOMFORTS AT THIS TIME, STATED SLEPT MOST THE NIGHT, REMAINS ON BIPAP CALL LIGHT AT REACH.
--- NOTE | 2021-01-30 08:36 | NUR ---
PT SEEN OOB IN CHAIR, ALERT AND ORIENTED X 3. LUNGS CLEAR, USING BiPAP AT THIS TIME, SATS UPPER 80s. NO COMPLAINTS OF SHORTNESS OF BREATH. PT STATES BM THIS MORNING. LEGS WRAPPED PER LYMPHEDEMA, SEEN WITH CONSIDERABLE SWELLING. PT ATE BREAKFAST WELL.
[2021-01-30 11:09] LABS: HEMATOCRIT 45.5 % (39.0-50.0); HEMOGLOBIN 13.6 g/dl (14.0-18.0); MEAN CELL VOLUME 86.5 fL CALC (80.0-100.0); MEAN CORPUSCULAR HGB 25.9 pG CALC (26.0-32.0); MEAN CORPUSCULAR HGB CONC 29.9 g/dL CAL (32.0-36.0); RED BLOOD COUNT 5.26 mill/uL (4.70-6.10); RED CELL DISTRI WIDTH 18.6 % (11.5-15.5)
[2021-01-30 11:24] LABS: ANION GAP 13 (6-22 (CALC)); BUN 22 mg/dL (8-23); BUN/CREATININE RATIO 23 (12-20 (CALC)); CARBON DIOXIDE 22 mmol/l (22-30); CHLORIDE 109 mmol/l (95-108); GFR > 60 ML/MIN (>=60 (CALC)); GFR FOR AFR.AMER. > 60 ML/MIN (>=60 (CALC)); POTASSIUM 5.1 mmol/l (3.5-5.1); SODIUM 138 mmol/l (137-146)
--- NOTE | 2021-01-30 11:31 | NUR ---
PT RECEIVED BEDBATH WITH SIEBEL CONSULTANT ASSIST, TOLERATED WELL. NO SHORTNESS OF BREATH.
--- NOTE | 2021-01-30 12:06 | NUR ---
PT SEEN BY DR MOORE THIS MORNING. ZITHROMAX STARTED PO. CXR COMPLETED, PT UPDATED ON RESULTS OF SAME. PT STATES THAT HE FEELS BETTER THAN WHEN HE CAME IN, BUT REALLY NOT WELL ENOUGH TO GO HOME.
--- NOTE | 2021-01-30 16:43 | NUR ---
PT'S BILATERAL LEG DRESSINGS HAVE BEEN CHANGED BY PATRIZIA FROM [facility]. PT IS TO HAVE LARGE SIZE SERIAL COMPRESSION STOCKINGS IN PLACE, BUT CONFUSION TO WHO IS TO ORDER THEM. LEG DRESSINGS TAKEN DOWN, OLD LOTION SCRUBBED OFF, NEW APPLIED, ABDs PLACED TO LEGS, NETTING APPLIED TO LEGS. PT TOLERATED WELL.
--- NOTE | 2021-01-30 18:27 | NUR ---
PT REMAINS OOB IN CHAIR, UP TO BSC NEEDED. NO COMPLAINT OF SHORTNESS OF BREATH.
--- NOTE | 2021-01-30 20:00 | NUR ---
sitting in bed in high fowlers position. o2 cont per home bipap machine. #22rfa saline lock. po fluids taken well. voids per urinal. dsgs ble intact. exts remain elevated on pillow. fall precautions cont.
--- NOTE | 2021-01-30 22:00 | NUR ---
up in chair. no distress. clinical research monitor shows sinus rhythm hr 88.
[2021-01-31] VITALS (17 sets, daily range): BP systolic 67–133; BP diastolic 39–80
--- NOTE | 2021-01-31 00:10 | NUR ---
maalox 30cc & tylenol 650mg po per request for indgestion & leg pain.
--- NOTE | 2021-01-31 02:00 | NUR ---
awake. has been up to bsc several times with lg amt black/burgundy stools.
[2021-01-31 02:40] LABS: C. DIFFICILE TOXIN A&B NEGATIVE (NEGATIVE)
--- NOTE | 2021-01-31 04:00 | NUR ---
remains awake. home bipap conts. no acute distress.
--- NOTE | 2021-01-31 07:37 | NUR ---
PT SEEN AWAKE, ALERT, ORIENTED X 3. PT IS SITTING UP IN CHAIR AT BEDSIDE, BSC AVAILABLE PT HAS LOOSE STOOLS. BM THIS MORNING WAS LIQUID WITH SOME BURGUNDY NOTED THROUGHOUT STOOL. PT STATES THAT HE WAS UNABLE TO GO INTO THE BED PER DIFFICULTY BREATHING WHEN IN BED.
--- NOTE | 2021-01-31 12:53 | NUR ---
PT CONTINUES BETWEEN CHAIR AND BSC WITH MINIMAL ASSIST. PT DOES HAVE BURGUNDY COLORATION TO STOOL, SIMILAR TO EARLIER. PT SEEN BY DR MOORE, STATES THAT HE DOES NOT FEEL WELL TODAY.
--- NOTE | 2021-01-31 15:59 | NUR ---
PT HAS HAD VISIT FROM DR DE LOS SANTOS FROM [facility], DRESSINGS CHANGED AND SCDs PLACED. NEW SCDs REQUIRED ADAPTING FROM BIOMED, PT NOW SITS IN THE CHAIR WITH SCD MACHINE IN PLACE.
[2021-01-31 18:23] LABS: HEMATOCRIT 28.8 % (39.0-50.0); HEMOGLOBIN 8.9 g/dl (14.0-18.0)
--- NOTE | 2021-01-31 20:19 | NUR ---
BLOOD INITIATED. PT INSTRUCTED TO ADVERSE EFFECTS AND TO NOTIFY NURSE IF PRESENT
--- NOTE | 2021-01-31 20:33 | NUR ---
FIRST UNIT OF PRBC INITIATED AT THIS TIME. DISCUSSED SURGICAL REFERRAL WITH PATIENT WHO SAID THAT AT [facility] THEY WOULD NOT DO A PROCEDURE HE IS TOO HIGH A RISK TO BE PUT TO SLEEP (HE HAS A LEAKING HEART VALVE). I EXPLAINED THIS IS USUALLY TWILIGHT ANESTHESIA NOT GENERAL ANESTHESIA. HOWEVER, HE SHOULD DISCUSS THIS WITH DR RONQUILLO AND ANESTHESIA. PT INFORMED THAT DR RONQUILLO WILL SEE HIM IN THE MORNING WITH A POSSIBILITY OF DOING A COLONOSCOPY. PT AGREED TO DISCUSS CONCERNS AND HX WITH BOTH
--- NOTE | 2021-01-31 21:25 | NUR ---
DR MOORE CALLED FOR UPDATE ON ROOM 8. HE ASKED FOR CONSULT FOR DR RODRIGUEZ HE IS PATIENT'S DAIRY TRUCK DRIVER (AN PT VOICED CONCERN ABOUT HAVING A COLONSCOPY GIVEN HIS CARDIAC STATUS). DR MOORE TO PHONE DR RODRIGUEZ. PT INFORMED AND SAID THAT HE FEELS MUCH BETTER WITH DR RODRIGUEZ'S INPUT. PT JUST USED BSC AND HAD A LARGE LIQUIDY STOOL WITH IS DARK RED IN COLOR. PT LOMOTIL GIVEN AFTER LOOSE STOOL. PT SAID THAT THE STOOL HAD MORE SOLID IN IT THAN PREVIOUS STOOLS. MD BANKS
--- NOTE | 2021-01-31 22:00 | NUR ---
UNIT 1 PRBC COMPLETED AND STSRTING SECOND UNIT. B/P LOW (BUT MEANS >50)-PT DENIES WEAKNESS, DIZZINESS OR S/S HYPOTENSION. PT NPO. PROTONIX INFUSING RX AND BLOOD PRODUCTS BEING GIVEN RX. FACIAL COLOR SLIGHTLY PINKER-NOT PALE. TALKATIVE. IN CHAIR WITH SCD'S AND C.PAP IN USE
--- NOTE | 2021-01-31 22:48 | NUR ---
REQUESTED 2 TYLENOL FOR ACHING LEGS. GIVEN PER REQUEST
--- NOTE | 2021-01-31 23:30 | NUR ---
AWARE OF CURRENT STATUS (INCLUDING B/P). RX FOR TLCL AND IV MEDICATION FOR B/P. DISCUSSED THIS WITH PT WHO DECLINED CENTRAL LINE PLACEMENT HE SAID THAT HE CANNOT LAY FLAT ON THE BED MUCH LESS WHITH HIS HEAD DOWN. HE ASKED THAT WE JUST START ANOTHER IV IN HIS OTHER ARM. I EXPLAINED THE DANGER OF RECEIVING THESE MEDICATION IN AN ARM/HAND. HE SAID THAT WAS THE BEST HE COULD OFFER. DR MOORE NOTIFIED AND AGREED WITH A [facility] PERIPHERAL SITE FOR NEOSYNEPHRINE TO ASSIST B/P- AT THIS TIME.
[2021-02-01] VITALS (129 sets, daily range): BP systolic 45–137; BP diastolic 29–76
--- NOTE | 2021-02-01 00:13 | NUR ---
SECOND UNIT OF PRBC COMPLETED. TO HAVE H&H IN 1 HOUR. PT SMILING AND TALKATIVE. B/P REMAINS LOW BUT PT IS ASYMPTOMATIC
--- NOTE | 2021-02-01 00:39 | NUR ---
NEOSYNEPHRINE IV INFUSING VIA IV ON RIGHT FOREARM WITH NS KVO. PROTINIX DRIP INFUSING IN NEW IV SITE OF RIGHT A/C WITH NS AT KVO. BOT SITES APPEAR WNL.
--- NOTE | 2021-02-01 00:57 | NUR ---
HAD ANOTHER BM. ONLY SOLIDS APPEAR TO BE CLOTS. DENIES ABD PAIN. IMMODIUM GIVEN (2ND THIS SHIFT). LAB HERE FOR BLOOD DRAW
--- NOTE | 2021-02-01 01:05 | NUR ---
SBP 91. WILL CONTINUE NEOSYNEPHRINE AT 0.5MCG/KG/MIN. PT IN CHAIR DOZING. FEET NOT ELEVATED BUT SCD'S IN USE
[2021-02-01 01:08] LABS: HEMATOCRIT 35.3 % (39.0-50.0); HEMOGLOBIN 10.9 g/dl (14.0-18.0)
--- NOTE | 2021-02-01 04:11 | NUR ---
CONTINUE TO TITRATE MEDICATION- NEOSYNEPHRINE. PT IN RECLINER DOZING AT INTERVALS- OWN BIPAP IN USE. LEGS CONTINUE TO WEEP.
--- NOTE | 2021-02-01 04:12 | NUR ---
PROTONIS AND LILY-SYNEPHRINE CONTINUE TO INFUSE-TOLERATING WELL. BOTH IV SITES APPEAR WNL
[2021-02-01 04:51] LABS: HEMATOCRIT 31.3 % (39.0-50.0); HEMOGLOBIN 9.8 g/dl (14.0-18.0); MEAN CELL VOLUME 86.9 fL CALC (80.0-100.0); MEAN CORPUSCULAR HGB 27.2 pG CALC (26.0-32.0); MEAN CORPUSCULAR HGB CONC 31.3 g/dL CAL (32.0-36.0); RED BLOOD COUNT 3.6 mill/uL (4.70-6.10); RED CELL DISTRI WIDTH 16.7 % (11.5-15.5)
[2021-02-01 05:08] LABS: ANION GAP 7 (6-22 (CALC)); BUN 36 mg/dL (8-23); BUN/CREATININE RATIO 42 (12-20 (CALC)); CARBON DIOXIDE 24 mmol/l (22-30); CHLORIDE 111 mmol/l (95-108); CREATININE 0.9 mg/dL (0.7-1.3); GFR > 60 ML/MIN (>=60 (CALC)); GFR FOR AFR.AMER. > 60 ML/MIN (>=60 (CALC)); SODIUM 137 mmol/l (137-146)
[2021-02-01 05:09] LABS: POTASSIUM 5.2 mmol/l (3.5-5.1)
--- NOTE | 2021-02-01 05:23 | NUR ---
CONTINUE TO TIRTATE MEDICATION. B/P MEANS REMAINS GREATER THAN 50. PT REMAINS ASYMPTOMATIC. FLUIDS AND PROTONIX DRIP CONTINUE
--- NOTE | 2021-02-01 06:45 | NUR ---
REPORT RECEIVED FROM JAYE GOMES. CARE ASSUMED BY MYSELF AND ALFONSO.
--- NOTE | 2021-02-01 07:15 | NUR ---
PT ASSISTED FROM RECLINER BACK TO BED AT THIS TIME IN PREPARATION FOR CENTRAL [place]ICA PLACEMENT.
--- NOTE | 2021-02-01 07:30 | NUR ---
DR KAY AT BEDSIDE FOR CENTRAL LINE PLACEMENT. PT GIVES VERBAL CONSENT FOR PLACEMENT.
--- NOTE | 2021-02-01 08:00 | NUR ---
PATIENT WAS ASSESSED. FEMORAL LINE WAS PLACED. WE RECEIVED VERBAL CONSENT FROM PATIENT PRIOR TO DOCTOR COMING UP FOR PLACEMENT. HAD A BM EARLIER THIS MORNING. STILL LOOSE BLOODY STOOL.
--- NOTE | 2021-02-01 08:10 | NUR ---
RADIOLOGY AT BEDSIDE FOR XRAY OF HIP FOR PLACEMENT
--- NOTE | 2021-02-01 08:30 | NUR ---
DR MOORE AT BEDSIDE TO DISCUSS PLAN OF CARE OF PATIENT.
--- NOTE | 2021-02-01 08:45 | NUR ---
DR RONQUILLO AT BEDSIDE TO DISCUSS PLAN OF CARE AND NEED OF TRANSFER. DR RONQUILLO WILL ACCEPT PATIENT AT [facility].
[2021-02-01 09:05] LABS: HEMOGLOBIN 9.1 g/dl (14.0-18.0); MEAN CELL VOLUME 86.8 fL CALC (80.0-100.0); MEAN CORPUSCULAR HGB 27.2 pG CALC (26.0-32.0); MEAN CORPUSCULAR HGB CONC 31.4 g/dL CAL (32.0-36.0); RED BLOOD COUNT 3.34 mill/uL (4.70-6.10); RED CELL DISTRI WIDTH 16.8 % (11.5-15.5)
--- NOTE | 2021-02-01 10:00 | NUR ---
SPOKE TO CHE AT [facility] ALL INFO GIVEN TO INITIATE TRANSFER CENTER. H&P AND FACE SHEET FAXED TO [facility].
--- NOTE | 2021-02-01 10:20 | NUR ---
SPOUSE AT BEDSIDE AT THIS TIME. UPDATE PROVIDED
--- NOTE | 2021-02-01 10:47 | NUR ---
CONSENT OBTAINED FOR TRANSFER TO [facility] FROM PATIENT
--- NOTE | 2021-02-01 11:05 | NUR ---
CHE FROM TRANSFER CENTER PHONED WITH ACCEPTANCE AND BED ASSIGNMENT OF ICU BED 14 NUMBER FOR REPORT IS [phone].
--- NOTE | 2021-02-01 11:10 | NUR ---
PHONED KOLE SPOKE WITH NEW DE LEON GIVEN
--- NOTE | 2021-02-01 11:15 | NUR ---
LAB AT BEDSIDE TO DRAW H&H
--- NOTE | 2021-02-01 11:45 | NUR ---
[facility] HERE. PT IS IN NEED OF A BARIATRIC STRETCHER. [facility] WILL RETURN ONCE THEY HAVE THAT STRETCHER\
[2021-02-01 11:49] LABS: HEMATOCRIT 27.3 % (39.0-50.0); HEMOGLOBIN 8.6 g/dl (14.0-18.0)
[2021-02-01] MEDS ORDERED: BUMETANIDE2 MG IN (12:15)
[2021-02-01] MEDS ORDERED: TOPROL XL25 MG PO (12:16)
--- NOTE | 2021-02-01 12:30 | NUR ---
DR MOORE PHONED TO ORDER 1 UNIT OF PRBCS
--- NOTE | 2021-02-01 13:02 | NUR ---
1 UNIT OF PRBCS STARTED AT THIS TIME
--- NOTE | 2021-02-01 14:30 | NUR ---
PT LEAVES VIA [email or web address] FOR TRANSPORT TO [facility]. REPORT CALLED TO EFRAIN AT [phone]. BELONGINGS SENT WITH . HOME BIAPAP AND SILADENEFIL SENT WITH PATIENT.
== END 2021-02-01 14:30 | DRG 871 ==
LOC: ED 07:28 → ED-I 09:06 → ED 09:16 → ICU 09:17 → ED-I 09:17 → ICU 01-23 07:30
PROVIDERS: Emergency Medicine; Internal Medicine; Nurse Practitioner Family; Surgery; ADMIT Internal Medicine; ATTEND Internal Medicine
PROC: 5A09357 Assistance with Respiratory Ventilation, Less than 24 Consecutive Hours, Continuous Positive Airway Pressure (ICD-10-PCS; principal; 2021-01-23)
PROC: 30233N1 Transfusion of Nonautologous Red Blood Cells into Peripheral Vein, Percutaneous Approach (ICD-10-PCS; 2021-01-31)
PROC: 30233N1 Transfusion of Nonautologous Red Blood Cells into Peripheral Vein, Percutaneous Approach (ICD-10-PCS; 2021-01-31)
PROC: 30233N1 Transfusion of Nonautologous Red Blood Cells into Peripheral Vein, Percutaneous Approach (ICD-10-PCS; 2021-02-01)
PROC: 06HY33Z Insertion of Infusion Device into Lower Vein, Percutaneous Approach (ICD-10-PCS; 2021-02-01)
DX: A41.9 Sepsis, unspecified organism (principal); J11.00 Influenza due to unidentified influenza virus with unspecified type of pneumonia; J96.21 Acute and chronic respiratory failure with hypoxia; J96.22 Acute and chronic respiratory failure with hypercapnia; K57.31 Diverticulosis of large intestine without perforation or abscess with bleeding; J44.0 Chronic obstructive pulmonary disease with (acute) lower respiratory infection; E87.2 Acidosis; I50.32 Chronic diastolic (congestive) heart failure; N17.9 Acute kidney failure, unspecified; L03.116 Cellulitis of left lower limb; D62 Acute posthemorrhagic anemia; I13.0 Hypertensive heart and chronic kidney disease with heart failure and stage 1 through stage 4 chronic kidney disease, or unspecified chronic kidney disease; N18.30 Chronic kidney disease, stage 3 unspecified; R65.20 Severe sepsis without septic shock; R19.7 Diarrhea, unspecified; I95.9 Hypotension, unspecified; I27.20 Pulmonary hypertension, unspecified; I89.0 Lymphedema, not elsewhere classified; I25.10 Atherosclerotic heart disease of native coronary artery without angina pectoris; E78.5 Hyperlipidemia, unspecified; I83.12 Varicose veins of left lower extremity with inflammation; I83.11 Varicose veins of right lower extremity with inflammation; Z99.81 Dependence on supplemental oxygen; Z87.891 Personal history of nicotine dependence; Z86.73 Personal history of transient ischemic attack (TIA), and cerebral infarction without residual deficits; Z20.822 Contact with and (suspected) exposure to COVID-19
CPT/HCPCS: J1650; P9016; Q9967; S0164

== ENCOUNTER 2021-08-29 15:48 | Emergency (ER) | payer MEDICARE, OTHER ==
[~2021-08-29] VITALS: Ht 180.3 cm; Wt 120.0 kg
[~2021-08-29 15:48] MED LIST changes: +BUMETANIDE2 MG IN; +TOPROL XL25 MG PO
[2021-08-29 16:32] VITALS: BP 110/71
== END 2021-08-29 16:14 | disposition home or self-care (01) ==
LOC: ED 15:48
DX: S81.812A Laceration without foreign body, left lower leg, initial encounter (principal); S81.811A Laceration without foreign body, right lower leg, initial encounter; I89.0 Lymphedema, not elsewhere classified; I11.0 Hypertensive heart disease with heart failure; I50.9 Heart failure, unspecified; J44.9 Chronic obstructive pulmonary disease, unspecified; W22.09XA Striking against other stationary object, initial encounter; Y93.89 Activity, other specified; Y92.009 Unspecified place in unspecified non-institutional (private) residence as the place of occurrence of the external cause

== ENCOUNTER 2021-09-01 19:24 | Emergency (ER) | payer MEDICARE, OTHER ==
[~2021-09-01] VITALS: Ht 180.3 cm; Wt 72.7 kg
[2021-09-01 20:11] LABS: HEMATOCRIT 39.8 % (39.0-50.0); HEMOGLOBIN 11.4 g/dl (14.0-18.0); IMMATURE GRANULOCYTES 0.3 % (0.0-5.0); MEAN CELL VOLUME 71.8 fL CALC (80.0-100.0); MEAN CORPUSCULAR HGB 20.6 pG CALC (26.0-32.0); MEAN CORPUSCULAR HGB CONC 28.6 g/dL CAL (32.0-36.0); NEUT# 16.73 thou/uL (1.82-7.42); RED BLOOD COUNT 5.54 mill/uL (4.70-6.10)
[2021-09-01 20:25] LABS: ALBUMIN 3.7 g/dL (3.2-5.0); MAGNESIUM 2.2 mg/dL (1.6-2.3); POTASSIUM 5.1 mmol/l (3.5-5.1); TOTAL PROTEIN 8.3 g/dL (6.3-8.2)
[2021-09-01 20:27] LABS: BILIRUBIN, TOTAL 3.2 mg/dL (0.0-1.4); CREATININE 3.2 mg/dL (0.7-1.3)
[2021-09-01 20:56] LABS: URINE BLOOD DIPSTICK NEGATIVE (NEGATIVE); URINE GLUCOSE - DIPSTICK NEGATIVE (NEGATIVE); URINE KETONE TRACE mg/dL (NEGATIVE); URINE LEUK ESTERASE NEGATIVE (NEGATIVE); URINE PROTEIN - DIPSTICK 30 mg/dL (NEG-TRACE); URINE SPECIFIC GRAVITY 1.025; URINE UROBILINOGEN - DIPSTICK 0.2 E.U./dL (0.2)
[2021-09-01 20:57] LABS: URINE BILIRUBIN - DIPSTICK SMALL (NEGATIVE); URINE COLOR DK. YELLOW; URINE NITRITE - DIPSTICK NEGATIVE (Negative)
--- NOTE | 2021-09-01 21:28 | NUR ---
PT TRANSPORTED ON CPAP +8 40% TO CT SCANN AND BACK TO ER. PT TOLERATED TRANSPORT WELL WITH VITAL SIGNS REMAINING STABLE.
[2021-09-01] MEDS ORDERED: SENNA-TABS8.6 MG PO (21:37)
[2021-09-01] MEDS ORDERED: MORPHINE (21:39)
[2021-09-01] MEDS ORDERED: FUROSEMIDE20 MG PO (21:40)
[2021-09-01 23:30] VITALS: BP 80/55
== END 2021-09-01 23:45 | disposition short-term general hospital (02) ==
LOC: ED 19:24 → ED-I 21:50 → ED 23:45
PROVIDERS: Emergency Medicine
PROC: 5A09357 Assistance with Respiratory Ventilation, Less than 24 Consecutive Hours, Continuous Positive Airway Pressure (ICD-10-PCS; principal; 2021-09-01)
DX: I11.0 Hypertensive heart disease with heart failure (principal); I50.23 Acute on chronic systolic (congestive) heart failure; N17.9 Acute kidney failure, unspecified; L03.116 Cellulitis of left lower limb; L03.115 Cellulitis of right lower limb; R09.02 Hypoxemia; I95.9 Hypotension, unspecified; I27.20 Pulmonary hypertension, unspecified; I89.0 Lymphedema, not elsewhere classified; E78.5 Hyperlipidemia, unspecified; I25.10 Atherosclerotic heart disease of native coronary artery without angina pectoris; J44.9 Chronic obstructive pulmonary disease, unspecified; Z99.81 Dependence on supplemental oxygen; Z86.73 Personal history of transient ischemic attack (TIA), and cerebral infarction without residual deficits; Z20.822 Contact with and (suspected) exposure to COVID-19